=== PATIENT | male | born 1950 | race Caucasian/White ===

== ENCOUNTER 2023-05-08 05:27 | Emergency (ER) | payer MEDICARE, SELFPAY ==
[2023-05-08 05:28] VITALS: BP 158/70; PULSE 52; RESP 20; TEMP 36.1; O2SAT 98; BMI 28.3
--- NOTE | 2023-05-08 05:44 | EDS_ITS ---
HPI History of Present Illness Chief Complaint: Dental Informant: patient Narrative Narrative: Patient states over the last couple days he has been having a painful swelling in the gum at the base of his mandibular incisors. No bleeding or discharge. No fevers, chills, systemic symptoms. No injury. He knows he has a history of bad teeth, trying to get to see a dentist but no one available in short timeframe. Also states that his left shoulder has been an issue chronically as well as a trapezius strain, some occasional tremors, and some neck discomfort, all of which she has been seeing a chiropractor for but his shoulder has been a little more sore in the last for 5 days, nothing that limits his range of motion though. [facility] Medical History Anxiety Bipolar 1 disorder Gout Home Medications amoxicillin 500 mg tablet 500 mg PO TID #30 tabs 05/08/23 [Rx Last Taken Unknown] buspirone 15 mg tablet 15 mg PO TID 05/08/23 [History Last Taken Unknown] carbamazepine 100 mg tablet,extended release,12 hr (Tegretol XR) 100 mg PO DAILY 05/08/23 [History Last Taken Unknown] Allergy/AdvReac Type Severity Reaction Status Date / Time Penicillins AdvReac Diarrhea Verified 05/08/23 05:28 Social History Smoking Status: Never smoker ROS ROS ED Constitutional Constitutional ED: Denies chills or fever(s) Eyes Eyes: Denies change in vision or double vision ENT ENT ED: Reports dental pain; Denies sinus pain or throat swelling Cardiovascular Cardiovascular: Denies chest pain or palpitations Respiratory/Chest Respiratory/Chest: Denies cough or dyspnea Integumentary Denies abscess or rash Neurologic Neurologic: Denies headache(s), paresthesias or weakness Psychiatric Psychiatric: Denies auditory hallucinations or suicidal ideation EXAM Physical Exam Const Vital Signs: 05/08/23 05:28 Temperature 97.0 F L Temperature Source Temporal Pulse Rate 52 L Respiratory Rate 20 H Blood Pressure 158/70 H Blood Pressure Mean 99 Pulse Ox 98 Oxygen Delivery Method Room Air Positive well nourished and well developed General Appearance ED: well developed and NAD HEENT HEENT Narrative: Poor dentition throughout. Anteriorly at the base of mandibular incisors, there is a small tender hyperemic swelling of the gingiva without a focal abscess, flu ctuance, sublingual edema, or submental fullness externally. No trismus. Nothing fluctuant to drain. Face and Sinus: sinuses nontender Throat: posterior oropharynx normal Eyes PERRL and EOMs intact bilaterally Neck no lymphadenopathy and supple Resp normal respiratory effort Extremity normal to inspection Extremity Narrative: Able to move fully both shoulders, somewhat limited at extremes with regards to the left shoulder, no focal bony or subacromial tenderness, no acromioclavicular joint tenderness or swelling. Neuro oriented x3 and CN's II-XII intact bilaterally Sensorium / Orientation: alert Gait (Neuro): normal gait Psych Psych Narrative: Flight of ideas. Redirectable. Does not seem acutely manic. Skin no rashes or lesions noted and no wounds MDM MDM MDM Narrative Medical decision making narrative: Consistent with an early dental infection, multifocal poor dentition is an obvious potential etiology. He states he thought he had an infection to penicillin because of taking tetracycline in the past that gave him problems and he thought it was a derivative. We discussed that. He states he can tolerate amoxicillin without any difficulty and is okay being on that. Discharge Plan Triage Chief Complaint: Dental ED Provider: Jeramie Mendez Dx/Rx/DC Orders Clinical Impression: Infected dental caries Instructions: ED Tooth Abscess Prescriptions: New amoxicillin 500 mg tablet 500 mg PO TID Qty: 30 0RF No Action buspirone 15 mg tablet 15 mg PO TID carbamazepine [Tegretol XR] 100 mg tablet extended release 12 hr 100 mg PO DAILY Primary Care Provider: Care Physician,No Primary Referrals: Dentist,Your [STAFF PHYSICIAN] - As soon as possible (see attached resource list as needed) Activity Restrictions/Additional Instructions: While on antibiotic, eat yogurt daily or take probiotic capsules as directed on the bottle to help prevent antibiotic associated diarrhea. Disposition Disposition: Home, Self Care
[2023-05-08] MEDS: AMOXICILLIN 500 MG CAPSULE PO (05:57)
== END 2023-05-08 06:20 | disposition home or self-care (01) ==
LOC: ED 05:51
PROVIDERS: Emergency Provider Emergency Medicine; Visit Provider Emergency Medicine
DX: K02.9 Dental caries, unspecified (principal); R25.1 Tremor, unspecified; S46.812A Strain of other muscles, fascia and tendons at shoulder and upper arm level, left arm, initial encounter; Z79.899 Other long term (current) drug therapy; X58.XXXA Exposure to other specified factors, initial encounter
CPT/HCPCS: 99282

== ENCOUNTER 2023-07-27 16:29 | Emergency (ER) | payer MEDICARE, SELFPAY ==
[2023-07-27 16:30] VITALS: BP 164/87; PULSE 52; RESP 20; TEMP 35.8; O2SAT 100; BMI 28.7
--- NOTE | 2023-07-27 16:46 | EDS_ITS ---
HPI History of Present Illness Chief Complaint: Dental Narrative Narrative: 72-year-old male who denies significant past medical history presents with dental pain that he has been having over the last 2 to 3 days, intermittently. Pain is mainly in his mandibular teeth, towards the front but in the area of the central incisors. Has had problems in the past, last having amoxicillin prescribed for him in April of last year, few months ago. He was unable to follow-up with a dentist. Is also concerned about a bump on the back of his neck that he noticed a few days ago as well. He denies any fevers or chills, no nausea or vomiting. States he has an appointment with his primary care physician, but has not for a month. He states he went to an urgent care where they were rude to him, so he left there, and presents to the emergency department for amoxicillin prescription for his dental pain. [facility] Medical History Anxiety Bipolar 1 disorder Gout Home Medications amoxicillin 500 mg tablet 500 mg PO TID #30 tabs 05/08/23 [Rx Last Taken Unknown] buspirone 15 mg tablet 15 mg PO TID 05/08/23 [History Last Taken Unknown] carbamazepine 100 mg tablet,extended release,12 hr (Tegretol XR) 100 mg PO DAILY 05/08/23 [History Last Taken Unknown] amoxicillin 500 mg capsule 500 mg PO TID #30 caps 07/27/23 [Rx Last Taken Unknown] Allergy/AdvReac Type Severity Reaction Status Date / Time Penicillins AdvReac Diarrhea Verified 07/27/23 16:30 Social History Smoking Status: Never smoker ROS ROS ED ROS Narrative Constitutional: No fever, no chills. HEENT: No sore throat. No neck pain. No loss of vision. No rhinorrhea. Bump on back of neck, right side. Positive dental pain intermittently over the last 2 to 3 days an area of central incisors. Cardiovascular: No chest pain. No palpitations. No pedal edema. Respiratory: No cough, no shortness of breath. Abdominal: No abdominal pain. No nausea. No vomiting. Genitourinary: No dysuria. No hematuria. Musculoskeletal: No myalgias. No arthralgias. Neurologic: No headaches. No dizziness. No lightheadedness. Skin: No rash. No change in color. Psychiatric: No depression. No anxiety. EXAM Physical Exam Narrative Exam Narrative: Afebrile. Vital signs noted. HEENT: Normocephalic. Atraumatic. PERRL, EOMI. Neck soft and supple. No point tenderness or step off. Slightly enlarged posterior cervical lymph node, no erythema, not attached, discretely mobile. Poor dentition with dental caries eroded to gumline tooth #25 and surrounding, no wounds of the gum, no drooling or trismus, no Prosper angina. Cardiovascular: Regular rate and rhythm. No murmurs, rubs, or gallops appreciated. Respiratory: No tachypnea. Lungs clear to auscultation bilaterally. Gastrointestinal: Abdomen soft, nontender, with normoactive bowel sounds. No rebound or guarding. Neurological: Awake. Alert. Nonfocal, nonlateralizing. Skin: No rash. Normal color. No pallor. Musculoskeletal: No pedal edema. Full range of motion extremities. Const Vital Signs: 07/27/23 16:30 Temperature 96.5 F L Temperature Source Temporal Pulse Rate 52 L Respiratory Rate 20 H Blood Pressure 164/87 H Blood Pressure Mean 112 Pulse Ox 100 Oxygen Delivery Method Room Air MDM MDM MDM Narrative Medical decision making narrative: Do not feel that any laboratory work is indicated. I think that his enlarged lymph node is nonspecific. I reviewed his prior ED visit and he did receive amoxicillin for his dental pain with suspected abscess. Given his dental caries and erosion, he may have a periapical abscess. He will be given a dental resource sheet and prescribed amoxicillin. Regarding his slightly enlarged lymph node, he will get this checked by his primary care physician with his appointment. Additionally, he was told that the amoxicillin may help with this slight enlargement. I feel he can be discharged safely home with follow-up. Return instructions to the emergency department were reviewed. Disposition is discharged home in stable condition. History & Record Review Discussion w/independent historian: Patient Additional record(s) reviewed:: Prior ED visit Discharge Plan Triage Chief Complaint: Dental ED Provider: Emiliano Bhatti Dx/Rx/DC Orders Clinical Impression: Lymph node enlargement, Dental abscess Instructions: Lymphadenopathy, ED Dental Pain, ED Dental Abscess Prescriptions: New amoxicillin 500 mg capsule 500 mg PO TID Qty: 30 0RF No Action buspirone 15 mg tablet 15 mg PO TID carbamazepine [Tegretol XR] 100 mg tablet extended release 12 hr 100 mg PO DAILY amoxicillin 500 mg tablet 500 mg PO TID Qty: 30 0RF Primary Care Provider: Care Physician,No Primary Referrals: Care Physician,No Primary [Primary Care Provider] - Activity Restrictions/Additional Instructions: Follow-up with your primary care provider as scheduled. Follow-up with a dentist as soon as possible. Disposition Disposition: Home, Self Care [employer] Reflex Medical hold order details:: IF a medical hold is selected below, a suggested order for a MEDICAL HOLD will reflex upon signing the document. Next of kin: [place] law dictates a PRIORITY LIST for identifying legal decision-maker/legal next of kin in the following order (LNOK): 1st: The patient?s legal guardian, if any 2nd: The patient's spouse (if status is questionable, consult Risk Management) 3rd: The patient?s adult child(aysha) (majority, if multiple children) 4th: The patient?s parents 5th: The patient?s adult siblings (majority, if multiple children siblings)
--- OUTSIDE RECORDS SUMMARY | 2023-07-27 17:58 | XMS RPT_ITS | CCD ---
Author Name Unknown Address [address] [facility] [address] [place] [address] Organization [facility] Care Team Providers Care [employer] Member Name Role Phone LAYA, DELL Primary Care Unavailable KOFI CORTES Attending Unavailable WILBERTO DILLON Admitting Unavailabl e WILBERTO DILLON Attending Unavailabl e AA UNKNOWN PCP, UNKNOWN Primary Care Unavaila WILBERTO Garcia Attending Unavailabl e AA UNKNOWN PCP, UNKNOWN Primary Care Unavaila ble WILBERTO DILLON Admitting Unavailabl e Laya, Dell Primary Care Provider Laya JESUS, Dell Primary Care Provider Laya JESUS, Dell Primary Care Provider [phone] Laya JESUS, Dell Primary Care Provider [phone] Laya JESUS, Dell Primary Care Provider Laya, Dell Unavailable Sanjuana Lambert LAYA, DELL Primary Care Unavailable RICK BIANCHI Admitting Unavailable KRYS JENKINS Attending Unavailable MARY WOLF Consulting Unavailable Laya, Dell Unavailable Laya JESUS, Dell Primary Care Provider [phone] Dr. SANJUANA LAMBERT Attending Unavaila ble Laya, Dell Primary Care Unavailable AZEM, Dr. ENRIQUE JALLOH Attending Unavail able Laya, Dell Primary Care Unavailable AZEM, Dr. ENRIQUE JALLOH Attending Unavail able Laya, Dell Primary Care Unavailable AZEM, Dr. ENRIQUE JALLOH Attending Unavail able Laya, Dell Primary Care Unavailable AZEM, Dr. ENRIQUE JALLOH Attending Unavail able Laya, Dell Primary Care Unavailable AZEM, Dr. ENRIQUE JALLOH Attending Unavail able Laya, Dell Primary Care Unavailable AZEM, Dr. ENRIQUE JALLOH Attending Unavail able Laya, Dell Primary Care Unavailable AZEM, Dr. ENRIQUE JALLOH Attending Unavail able Laya, Dell Primary Care Unavailable AZEM, Dr. ENRIQUE JALLOH Attending Unavail able Laya, Dell Primary Care Unavailable Allergies Allergy Classification Reported Allergen(s) Allergy Type Date of Onset Reaction(s) Facility (1 source) Penicillin Drug Allergy [facility] Repository (8 sources) Non-steroidal anti-inflammato ry agent; Translations: [NSAIDS (NON-STEROIDAL ANTI-INFLAMMATO RY DRUG)] Propensity to adverse reactions to drug 5 Other: See Comments [facility] (9 sources) Penicillins; Translations: [PENICILLINS] Propensity to adverse reactions 7 Unknown [facility] (20 sources) Non-steroidal anti-inflammato ry agent Propensity to adverse reactions to drug 5 Other: See Comments [facility] (20 sources) Penicillins Propensity to adverse reactions 7 [facility] Medications Current Medications Medication Drug Class(es) Dates Sig (Normalized) Sig (Original) acetaminophen 500 mg oral tablet (20 sources) Start: 05-23-2019 acetaminophen (TYLENOL) tablet 1,000 mg Completed/Discontinued Medications Medication Drug Class(es) Dates Sig (Normalized) Sig (Original) allopurinol 100 mg oral tablet (20 sources) Xanthine Oxidase Inhibitor Start: 12-31-2020 End: 03-11-2022 take 2 tablets by mouth once daily allopurinol (ZYLOPRIM) 100 mg tablet Indications: Idiopathic chronic gout without tophus, unspecified site Take 2 tablets by mouth once daily. 180 tablet 3 03/11/2022 Active Problems Active Problems Problem Classification Problem Date Documented Date Episodic/Chronic Acquired foot deformities (2 sources) Hammer toe; Translations: [Other hammer toe(s) (acquired), left foot] Chronic Allergic reactions (2 sources) Allergy status to penicillin; Translations: [ALLERGY STATUS TO PENICILLIN] Onset: 06-10-2020 Episodic Anxiety disorders (20 sources) Anxiety; Translations: [Anxiety disorder, unspecified] 09-16-2014 Chronic Chronic kidney disease (20 sources) Chronic kidney disease stage 3; Translations: [Stage 3 chronic kidney disease] 07-07-2021 Chronic Chronic kidney disease (1 source) Chronic kidney disease; Translations: [Stage 3a chronic kidney disease (HCC)] Onset: 07-08-2021 Deficiency and other anemia (16 sources) Pancytopenia; Translations: [Other pancytopenia] Onset: 03-11-2022 Chronic Diseases of mouth; excluding dental (1 source) Other lesions of oral mucosa; Translations: [Other lesions of oral mucosa] Onset: 05-28-2022 Episodic Disorders of teeth and jaw (7 sources) Dental caries, unspecified; Translations: [Infection of tooth] Onset: 06-10-2020 05-28-2022 Episodic Esophageal disorders (20 sources) Gastroesophageal reflux disease; Translations: [Gastro-esophageal reflux disease without esophagitis] 09-16-2014 Chronic Essential hypertension (20 sources) Benign essential hypertension; Translations: [Essential (primary) hypertension] 12-16-2015 Chronic Gout and other crystal arthropathies (20 sources) Gout; Translations: [Gout, unspecified] 09-16-2014 Chronic Hyperplasia of prostate (1 source) Weak urinary stream due to benign prostatic hypertrophy; Translations: [Benign prostatic hyperplasia with lower urinary tract symptoms] Chronic Hypertension with complications and secondary hypertension (20 sources) Chronic kidney disease stage 3 due to hypertension; Translations: [Hypertensive chronic kidney disease with stage 1 through stage 4 chronic kidney disease, or unspecified chronic kidney disease] Onset: 01-31-2021 01-31-2021 Chronic Mood disorders (20 sources) Bipolar disorder, unspecified; Translations: [Bipolar disorder in remission] Onset: 09-11-2019 07-07-2021 Chronic Open wounds of head; neck; and trunk (1 source) Laceration without foreign body of other part of head, initial encounter; Translations: [Facial laceration, initial encounter] Onset: 06-07-2022 Episodic Osteoarthritis (20 sources) Osteoarthritis of joint of bilateral hands; Translations: [Primary osteoarthritis, right hand] Onset: 02-04-2021 02-04-2021 Chronic Other aftercare (4 sources) Patient encounter status; Translations: [Encounter for therapeutic drug level monitoring] Episodic Other connective tissue disease (1 source) Pain in left foot; Translations: [Pain in left foot] Onset: 05-28-2022 Episodic Other connective tissue disease (1 source) Pain in both feet; Translations: [Pain in right foot] Episodic Other male genital disorders (1 source) Secondary erectile dysfunction; Translations: [Male erectile dysfunction, unspecified] Chronic Other nutritional; endocrine; and metabolic disorders (1 source) Overweight; Translations: [Overweight] Episodic Peripheral and visceral atherosclerosis (7 sources) Atherosclerosis of artery of lower limb; Translations: [Unspecified atherosclerosis of muscogee arteries of extremities, bilateral legs] Onset: 08-28-2022 Chronic Spondylosis; intervertebral disc disorders; other back problems (20 sources) Cervical arthritis; Translations: [Spondylosis without myelopathy or radiculopathy, cervical region] Onset: 11-29-2017 11-29-2017 Chronic Syncope (1 source) Syncope and collapse; Translations: [Syncope, unspecified syncope type] Onset: 06-07-2022 Episodic Unclassified (2 sources) LT FOOT PAIN / TOOTH ABSCESS 05-28-2022 Past or Other Problems Problem Classification Problem Date Documented Da te Episodic/Chronic Abdominal hernia (20 sources) Umbilical hernia; Translations: [Umbilical hernia without obstruction or gangrene] Onset: 12-17-2014 12-17-2014 Episodic Fracture of lower limb (12 sources) Displaced Maisonneuve's fracture of right leg, initial encounter for closed fracture; Translations: [Displaced bimalleolar fracture of right lower leg, initial encounter for closed fracture] Onset: 06-07-2022 06-07-2022 Episodic Lymphadenitis (20 sources) Lymphadenopathy; Translations: [Enlarged lymph nodes, unspecified] Onset: 05-11-2017 05-11-2017 Episodic Mycoses (20 sources) Onychomycosis; Translations: [Tinea unguium] Onset: 12-30-2016 12-30-2016 Episodic Other connective tissue disease (20 sources) Pain of toes of bilateral feet; Translations: [Pain in right toe(s)] Onset: 12-30-2016 12-30-2016 Episodic Other hematologic conditions (20 sources) MCV - raised; Translations: [Other abnormality of red blood cells] Onset: 05-21-2020 05-21-2020 Episodic Other lower respiratory disease (2 sources) Cough; Translations: [COUGH] Onset: 09-11-2019 Episodic Other non-traumatic joint disorders (1 source) Osteophyte, right shoulder; Translations: [Osteophyte of right shoulder] Episodic Other skin disorders (20 sources) Callosity; Translations: [Corns and callosities] Onset: 12-30-2016 12-30-2016 Episodic Residual codes; unclassified (1 source) Peripheral edema; Translations: [Peripheral edema] Episodic Results Test Name Value Interpretation Reference Range Facil ity Vital Signs Date Time Vital Sign Value Performing Clinician Facility 10-05-2022 14:16-0400 Body height 175.3 cm Sakina Rodriguez DPM Work Phone: [facility] 10-05-2022 14:16-0400 Body temperature 97.3 [degF] Sakina Rodriguez DPM Work Phone: [facility] 10-05-2022 14:16-0400 Body weight 85.73 kg Sakina Rodriguez DPM Work Phone: [facility] 07-01-2022 13:57-0500 Body temperature 97.3 [degF] Sakina Rodriguez DPM Work Phone: [facility] 07-01-2022 13:57-0500 Body weight 85.73 kg Sakina Rodriguez DPM Work Phone: [facility] 05-28-2022 04:30-0500 Diastolic blood pressure 61 mm[Hg] Dell Reeves Other Phone: [facility] 05-28-2022 04:30-0500 Heart rate 59 /min Dell Reeves Other Phone: [facility] 05-28-2022 04:30-0500 Respiratory rate 16 /min Dell Reeves Other Phone: [facility] 05-28-2022 04:30-0500 SaO2% (BldA) [Mass fraction] 98 % Dell Reeves Other Phone: [facility] 05-28-2022 04:30-0500 Systolic blood pressure 116 mm[Hg] Dell Reeves Other Phone: [facility] 05-28-2022 03:41-0500 Body height 175.2 cm Delljesse Reeves Other Phone: formerly [facility] 05-28-2022 03:41-0500 Body temperature 96.98 [degF] Dell Laya Other Phone: formerly [facility] 05-28-2022 03:41-0500 Body weight 84.4 kg Delljesse Reeves Other Phone: formerly [facility] 04-28-2022 10:05-0400 Body height 175.3 cm Sakina Rodriguez DPM Work Phone: [facility] 04-28-2022 10:05-0400 Body temperature 97.11 [degF] Sakina Rodriguez DPM Work Phone: [facility] 04-28-2022 10:05-0400 Body weight 86.18 kg Sakina Rodriguez DPM Work Phone: [facility] 03-11-2022 15:00-0400 Body temperature 97.9 [degF] Saul Bhagat MD Work Phone: [facility] 03-11-2022 15:00-0400 Body weight 86.18 kg Saul Bhagat MD Work Phone: [facility] 03-11-2022 15:00-0400 Diastolic blood pressure 68 mm[Hg] Saul Bhagat MD Work Phone: [facility] 03-11-2022 15:00-0400 Heart rate 80 /min Saul Bhagat MD Work Phone: [facility] 03-11-2022 15:00-0400 Respiratory rate 18 /min Saul Bhagat MD Work Phone: [facility] 03-11-2022 15:00-0400 SaO2% (BldA) [Mass fraction] 98 % Saul Bhagat MD Work Phone: [facility] 03-11-2022 15:00-0400 Systolic blood pressure 140 mm[Hg] Saul Bhagat MD Work Phone: [facility] 05-23-2019 22:45-0500 BP Diastolic 74 mm[Hg] Kofi Cortes [place], [place] 05-23-2019 22:45-0500 BP Systolic 188 mm[Hg] Kofi Cortes [place] 05-23-2019 22:45-0500 Pulse (Heart Rate) 62 /min Kofi Cortes [place] 05-23-2019 22:45-0500 Pulse Oximetry 97 % Kofi Cortes [place] 05-23-2019 22:45-0500 Respiratory Rate 16 /min Kofi Cortes [place] 05-23-2019 19:45-0500 BMI (Body Mass Index) 26.58 kg/m2 Kofi Jackman [place], [place] 05-23-2019 19:45-0500 Body Temperature 98.29 [degF] Kofi Cortes [place] 05-23-2019 19:45-0500 Body weight 81.65 kg Kofi Cortes [place] 05-23-2019 19:45-0500 Height 175.3 cm Kofi Cortes [place] Encounters Encounter Date Encounter Type Care Provider Facility Start: 04-21-2023 Refill Dell Reeves MD Work Phone: Family [facility] Procedures Date Procedure Procedure Detail Performing Clinician Start: 06-07-2022 Antibody screen DELL FERRER Plan of Treatment Date Care Activity Detail Author Start: 10-17-2028 Urine microalbumin profile [facility] Start: 03-11-2027 Lipid 1996 panel - Serum or Plasma Lipid Screening [facility] Start: 03-11-2027 LIPID SCREEN LIPID SCREEN [facility] Start: 06-11-2025 DIABETES SCREEN DIABETES SCREEN [facility] Start: 06-11-2025 Diabetes Screening Diabetes Screening [facility] Start: 05-20-2025 LIPID SCREEN LIPID SCREEN [facility] Start: 03-11-2025 DIABETES SCREEN DIABETES SCREEN [facility] Start: 04-24-2024 DIABETES SCREEN DIABETES SCREEN [facility] Start: 06-11-2023 SERUM CREATININE SERUM CREATININE [facility] Start: 06-09-2023 HEMOGLOBIN/HEMATOCRIT HEMOGLOBIN/HEMATOCRIT [facility] Start: 03-12-2023 Covid-19 Vaccine () Covid-19 Vaccine () [facility] Start: 03-12-2023 Influenza vaccination [facility] Start: 03-11-2023 Adult depression screening assessment DEPRESSION SCREENING [facility] Start: 03-11-2023 ANNUAL PCP TEAM CHRONIC DISEASE VISIT ANNUAL PCP TEAM CHRONIC DISEASE VISIT [facility] Start: 03-11-2023 HEMOGLOBIN/HEMATOCRIT HEMOGLOBIN/HEMATOCRIT [facility] Start: 03-11-2023 SERUM CREATININE SERUM CREATININE [facility] Start: 07-12-2022 ADVANCE DIRECTIVE DISCUSSION ADVANCE DIRECTIVE DISCUSSION [facility] Start: 07-12-2022 DEPRESSION ASSESSMENT DEPRESSION ASSESSMENT [facility] Start: 07-08-2022 NPV, Provider: Arturo French, Status: Pen, Time: 9:30 AM NPV, Provider: Arturo French, Status: Victor M, Time: 9:30 AM [facility] Work Phone: Start: 04-24-2022 HEMOGLOBIN/HEMATOCRIT HEMOGLOBIN/HEMATOCRIT [facility] Start: 04-24-2022 SERUM CREATININE SERUM CREATININE [facility] Start: 03-12-2022 Influenza vaccination [facility] Start: 02-04-2022 ANNUAL PCP TEAM CHRONIC DISEASE VISIT ANNUAL PCP TEAM CHRONIC DISEASE VISIT [facility] Start: 02-01-2022 Adult depression screening assessment DEPRESSION SCREENING [facility] Start: 12-05-2021 COVID-19 VACCINE (4 - Booster for Moderna series) COVID-19 VACCINE (4 - Booster for Moderna series) [facility] Start: 10-02-2021 COVID-19 VACCINE (4 - Booster for Moderna series) COVID-19 VACCINE (4 - Booster for Moderna series) [facility] Start: 07-12-2021 ADVANCE DIRECTIVE DISCUSSION ADVANCE DIRECTIVE DISCUSSION [facility] Start: 07-12-2021 DEPRESSION ASSESSMENT DEPRESSION ASSESSMENT [facility] Start: 04-27-2021 COVID-19 VACCINE (4 - Booster for Moderna series) COVID-19 VACCINE (4 - Booster for Moderna series) [facility] Start: 05-23-2019 Annual Wellness Visit (AWV) Annual Wellness Visit (AWV) [place] Start: 03-12-2019 Influenza vaccination Flu vaccine (#1) [place], [place] Start: 2017 Pneumococcal 65+ years Vaccine (1 of 1 - PPSV23) Pneumococcal 65+ years Vaccine (1 of 1 - PPSV23) [place] Start: 04-15-2017 Colonoscopy COLONOSCOPY [facility] Start: 04-15-2017 COLORECTAL CANCER SCREENING COLORECTAL CANCER SCREENING [facility] Start: 2002 Colon cancer screen colonoscopy Colon cancer screen colonoscopy [place], [place] Start: 2002 Shingles Vaccine (1 of 2) Shingles Vaccine (1 of 2) [place] Start: 1997 COLOGUARD (FIT-DNA) COLOGUARD (FIT-DNA) [facility] Start: [address] COLONOGRAPHY [facility] Start: 1997 FECAL OCCULT BLOOD FECAL OCCULT BLOOD [facility] Start: 1997 SIGMOIDOSCOPY SIGMOIDOSCOPY [facility] Start: 1992 Diabetes screen Diabetes screen [place], [place] Start: 1992 Lipid screen Lipid screen [place] Start: 1970 BP CONTROLLED (<130/80) BP CONTROLLED (<130/80) [facility] in Start: 1963 DTaP/Tdap/Td vaccine (1 - Tdap) DTaP/Tdap/Td vaccine (1 - Tdap) [place], [place] Start: 1952 Creatinine monitoring Creatinine monitoring [place], [place] Start: 1952 Hepatitis C screen Hepatitis C screen [place], [place] Start: 1952 Potassium monitoring Potassium monitoring [place], [place] CBC W Auto Different ial panel - Blood CBC + DIFF Lab Routine Pancytopenia (HCC) Ordered: 03/11/2022 [facility] Work Phone: Immunizations Immunization Date Immunization Notes Care Provider Fa cili 12-26-2020 COVID-19 vaccine, fu ll dose (MODERNA) Saul Bhagat MD Work Phone: [facility] Work Phone: 12-10-2020 COVID-19 vaccine, fu ll dose (MODERNA) Dell Reeves MD Work Phone: [facility] 11-09-2020 COVID-19 vaccine, fu ll dose (MODERNA) Dell Reeves MD Work Phone: [facility] 11-04-2020 COVID-19 vaccine, fu ll dose (MODERNA) Saul Bhagat MD Work Phone: [facility] Work Phone: 03-27-2020 influenza virus vacc ine, unspecified formulation Dell Reeves MD Work Phone: [facility] Work Phone: 03-26-2020 influenza, injectabl e, quadrivalent, preservative free Saul Bhagat MD Work Phone: [facility] Work Phone: 05-26-2019 Seasonal trivalent influenza vaccine, adjuvanted, preservative free Dell Reeves MD Work Phone: [facility] 11-28-2018 pneumococcal polysaccharide vaccine, 23 valent Dell Reeves MD Work Phone: [facility] 10-17-2018 tetanus toxoid, redu juanito diphtheria toxoid, and acellular pertussis vaccine, adsorbed Dell Reeves MD Work Phone: [facility] 04-28-2018 zoster vaccine recombinant Dell Reeves MD Work Phone: [facility] Work Phone: 04-22-2018 Seasonal trivalent influenza vaccine, adjuvanted, preservative free Dell Reeves MD Work Phone: [facility] Work Phone: 10-09-2017 pneumococcal conjuga te vaccine, 13 valent Dell Reeves MD Work Phone: [facility] Work Phone: 10-09-2017 zoster vaccine recombinant Dell Reeves MD Work Phone: [facility] Work Phone: 03-12-2017 influenza, seasonal, injectable Dell Reeves MD Work Phone: [facility] 06-02-2016 influenza, seasonal, injectable Dell Reeves MD Work Phone: [facility] 08-05-2015 influenza, injectabl e, quadrivalent, contains preservative Dell Reeves MD Work Phone: [facility] 04-10-2013 influenza, seasonal, injectable Dell Reeves MD Work Phone: [facility] Work Phone: 04-16-2009 influenza virus vacc ine, whole virus Dell Reeves MD Work Phone: [facility] 10-25-2007 tetanus and diphther ia toxoids, adsorbed, preservative free, for adult use (2 Lf of tetanus toxoid and 2 Lf of diphtheria toxoid) Dell Reeves MD Work Phone: [facility] Work Phone: Payers Date Payer Category Payer Medicare MMO MEDICARE MMO MEDADVANTAGE O [id number] 2020-Present [phone] [address] [place] [address] [facility] [id number] 2020 Medicare MMO MEDICARE MMO MEDADVANTAGE O [id number] 2020-Present [phone] [address] [place] [address] [facility] [id number] 2020 Unknown [id number] 2018 Unknown [id number] 2018 Unknown HALLIE RAMÍREZ D [facility] [employer] HALLIE RAMÍREZ DUAL xxxxxxxxxxx 2018-Present [address] [place] [address] xxxxxxxxxxx [id number] 2015 Medicare [id number] 1950 Unknown [id number] 1952 Unknown [id number] 1952 Unknown [id number] 1952 Unknown [id number] 1952 Unknown [id number] 1952 Unknown [id number] 1952 Unknown [id number] 1952 Unknown [id number] 1952 Unknown [id number] 1952 Unknown [id number] 1952 Unknown [id number] 1952 Unknown [id number] Medicaid [id number] Self-pay [id number] Unknown Unknown 800 Social History Date Type Detail [facility] [employer] Sex Assigned At Not on file [place], [place] Start: 09-16-2014 End: 03-11-2022 Tobacco smoking status NHIS Never smoked tobacco [facility] Start: 02-04-2021 End: 11-18-2022 Alcohol intake Current non-drinker of alcohol (finding) [facility] Start: 02-02-2021 End: 03-11-2022 History SDOH Alcohol Frequency 1 [facility] Start: 02-02-2021 History SDOH Alcohol Std Drinks 98 [facility] Start: 02-02-2021 End: 03-11-2022 History SDOH Social Connections Phone 5 [facility] Start: 02-02-2021 End: 03-11-2022 History SDOH Social Connections Membership 2 [facility] Start: 02-02-2021 End: 03-11-2022 History SDOH Physical Activity DPW 3 [facility] Start: 02-01-2021 Education 17 [facility] Start: 1950 Sex Assigned At Male [facility] Start: 09-16-2014 End: 03-11-2022 Tobacco use and exposure Smokeless tobacco non-user [facility] Work Phone: Start: 03-11-2022 History SDOH Alcohol Std Drinks 0 [facility] Start: 03-11-2022 History SDOH Social Connections Get Together 4 [facility] Tobacco smoking consumption unknown [facility] Start: 05-29-2022 End: 06-08-2022 Exposure to SARS-CoV-2 (event) Not sure [facility] Start: 03-11-2022 End: 07-26-2022 History of Social function [facility] Start: 03-11-2022 End: 07-26-2022 Social connection and isolation panel [facility] Do you belong to any clubs or organizations such as catholic groups, unions, fraternal or athletic groups, or school groups? No [facility] Are you now , , , , never or living with a partner? [facility] How often to you hav e a drink containing alcohol? Never [facility] How many standard dr inks containing alcohol do you have on a typical day? Patient does not drink [facility] How hard is it for y ou to pay for the very basics like food, housing, medical care, and heating Hard [facility] Do you feel stress - tense, restless, nervous, or anxious, or unable to sleep at night because your mind is troubled all the time - these days [OSQ] Only a little [facility] (I/We) worried carolee er (my/our) food would run out before (I/we) got money to buy more. Often true [facility] The food that (I/we) bought just didn't last, and (I/we) didn't have money to get more. Sometimes true [facility] In the past 12 month s, was there a time when you were not able to pay the mortgage or rent on time? Yes [facility] Start: 10-14-2018 Gender identity Identifies as male gender (finding) [facility] Start: 10-14-2018 Sexual orientation Heterosexual (finding) [facility] Clinical Notes 12-17-2014 to 01-11-2023 Telephone Encounter - Destinee Gould APRN.CNP - 01/11/2023 12:54 PM EDTTelephone Encounter - Lana Cartagena - 01/11/2023 11:36 AM EDTTelephone Encounter - Lana Cartagena - 10/14/2022 12:10 PM EDT Note Date & Type Note Facility 01-11-2023 Miscellaneous Notes Formattin g of this note might be different from the original. Medication refill order completed at this time. Thanks, Destinee Gould APRN.CNP Office of Dr. Dell Reeves [facility] Spoke with patient who states he ran out of buspar yesterday. Has been unable to reach psychiatrist to determine refill status. Asking for a temporary supply to hold him. Dr. Reeves agrees to send in 1 refill only. Rx pended, pharmacy verified No need for call back Lana Cartagena documented in this encounter [facility] 10-14-2022 Miscellaneous Notes Formattin g of this note might be different from the original. Situation: Covid exposure Background: spoke with patient. States he was exposed to someone with Covid while he was in a car several days ago. States he is asymptomatic and fully vaccinated. Assessment: Could he have Covid? Should he be tested? Recommendation/request: Advised patient to monitor for symptoms and test if he becomes symptomatic. We would be happy to see him for a virtual visit if he would like. I am not able to give him any further advice. Lana Cartagena Pt notified front office yesterday that his sister has Covid and he had questions regarding his exposure. Pt is asymptomatic and stated he's out of town. Left another message to call office in attempts to answer patient's questions. I called patient, no answer. Not identified. Left message to call office. Aurora Jones RN Name: Gorge Sanchez called today. : 1950 (home) [phone] (cell) Reason for call: Clyde would like Analy :) to please call him new # [phone] Covid question. Patient did not say he had it. Linda Laureano documented in this encounter [facility] 10-05-2022 Instructions Sakina Rodriguez DPM - 10/05/2022 2:56 PM EDT Patient instructions given. documented in this encounter [facility] 10-05-2022 History of Presen t illness Narrative SUBJECTIVE: Gorge Sanchez presents to the office for complaint of painful fungal toenails and painful foot lesions on left 3rd toe. Patient states that sometimes he tapes the toes apart but the spacer given last visit caused more pain. Denies changes in medication history since last visit, has not been seen since 12/2020. No new allergies and no new medications. Ambulatory with walker and left CAM boot. Patient has had both doses of COVID-19 vaccination. Objective: Temp 36.3 C (97.3 F) Ht 175.3 cm (5' 9 ) Wt 85.7 kg (189 lb) BMI 27.91 kg/m DP pulses palpable +2/4 bilaterally. Nails left 1,2,4,5 and right 1-5 are elongated, thickened, and dystrophic. Right heel hyperkeratosis. Left 3rd digit deformity and hammer toe with maceration and slight ulceration noted without erythema or edema. Pes cavus foot type. Assessment: (M20.42) Hammer toe of left foot (primary encounter diagnosis) (B35.1) Onychomycosis (I70.203)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 different from the original. Called and spoke to patient directly. Patient complains of chronic urinary frequency. He notes he does strain a little in the morning, but he does not endorse significant sensation of incomplete voiding. Rather, he simply states he just cannot hold urine like he used to. He would like something prescribed for this. Will reach out to patient tomorrow regarding medication options. Patient has been identified by name and date of : Yes Reason for call: Patient returned Dr. Bhagat's call. Patient stated he had questions about frequent urination and it is irritating to him. Patient stated he has seen commercials for medication to help but wanted to speak with Dr. Bhagat in regards to something that can help. Please call patient back. restaurant crew person: Patient Phone number: [phone] (home) Name: Gorge Sanchez called today. : 1950 (home) [phone] (cell) Reason for call: Pt called to discuss his appt on 03-11-22. Pt also has questions about his medications. Pt can be reached at [phone] (home) The patients preferred pharmacy has been captured for this encounter? no Heike Check Paca documented in this encounter [facility] 03-12-2022 Miscellaneous Notes Formattin g of this note might be different from the original. Cannot complete prior auth. Patients address and phone number do not match with insurance company. Ins. Company are requiring patient to call and update info prior to allowing office to process PA. Pt notified VIA my chart. Aurora Jones RN ' Patient has been identified by name and date of : Yes Type of form: Prior Authorization Form received via: Fax When form is completed, fax form to fax number provided. Form has been forwarded to: Provider's mailbox. Provider name: Dr. Laya Fang Patient Vehicle Service Attendant documented in this encounter [facility] 03-11-2022 Nurse Note Venipuncture performed to left antecubital. Number of tubes collected: 2 lavender and 2 mint. documented in this encounter [facility] 03-11-2022 History of Presen t illness Narrative Office Visit Note Assessment & Plan 1. Benign prostatic hyperplasia with weak urinary stream Complains of mild LUTS-like symptoms suspicious for BPH. Check prostate labs. May consider trial of tamsulosin in the future. - PSA/PROSTSPECAG SCRN; Future 2. Overweight BMI 28. Check CHEM panel, A1c, lipids. - COMP METABOLIC PANEL - HGB A1C - LIPID PANEL, NONFASTING 3. Bipolar disorder, current episode mixed, moderate (HCC) Stable, controlled on multiple psychotropic medications (see below), dosages of some of these have been decreased over the years. Will refill each at dose that he is currently taking. Monitor thyroid function given that he is on Seroquel. He does not follow with psychiatry. - carBAMazepine (TEGRETOL) 200 mg tablet; Take 3 in AM and 2.5 in PM. Dispense: 495 tablet; Refill: 3 - ARIPiprazole (ABILIFY) 5 mg tablet; Take 1 tablet by mouth once daily. Dispense: 90 tablet; Refill: 3 - busPIRone (BUSPAR) 15 mg tablet; Take 1 tablet by mouth three times daily. Dispense: 270 tablet; Refill: 3 - QUEtiapine (SEROQUEL) 25 mg tablet; Take 1 tablet by mouth daily at bedtime. Dispense: 90 tablet; Refill: 3 - TSH BLD - T4 FREE/FREE THYROX 4. Idiopathic chronic gout without tophus, unspecified site Stable, in remission for years due to allopurinol 200 mg daily. Refill. - allopurinol (ZYLOPRIM) 100 mg tablet; Take 2 tablets by mouth once daily. Dispense: 180 tablet; Refill: 3 5. Stage 3b chronic kidney disease (HCC) Stable for years, GFR 30s 40s, due to remote history of long-term lithium use. Monitoring CHEM panel. 6. Essential hypertension, benign 140/68 today. Goal <130/80 considering CKD stage IIIb. Unclear if this is his baseline for not. Prescribed BP cuff, monitor at home. Patient agrees to notify me if he does not statical <130/80. In that case, would consider increasing lisinopril dosage. - Blood Pressure Monitor; 1 Each as directed for 1 day. Dispense: 1 Kit; Refill: 0 - lisinopril (ZESTRIL, PRINIVIL) 10 mg tablet; Take 1 tablet by mouth once daily. Dispense: 90 tablet; Refill: 3 7. Medication monitoring encounter Takes omeprazole 40 mg daily for GERD. Discussed long-term use, trial self wean at home. We will prescribe 20 mg tablets instead of 40 mg tablets. Patient will try to decrease to 20 mg daily x2 months, then to as needed use only. - omeprazole (PRILOSEC) 20 mg capsule; Take 2 capsules by mouth once daily. Dispense: 180 capsule; Refill: 3 8. Pancytopenia (HCC) Mild pancytopenia noted on blood work 1 year ago. No subsequent CBC. Repeat CBC with diff today. If persistent then consider hematology consultation. - CBC + DIFF 9. ED (erectile dysfunction) of organic origin Controlled on Cialis, usually takes 2-3 tablets to achieve adequate response prior to sexual activity. - Tadalafil (CIALIS) 5 mg tablet; Take 1 tablet by mouth as needed. 1-2 hours before sexual intercourse Dispense: 30 tablet; Refill: 3 Return in about 6 months (around 09/08/2022) for Follow-up with PCP for chronic conditions management. Possibly sooner if dictated by labs. Saul Bhagat M.D. Subjective Gorge Sanchez is a 71 year old male with chief complaint of med review . Presents for med refills. Was told he had to make appointment prior to more refills being sent. Not seen in this clinic in >1 year. C/o left shoulder pain s/p fall 3 months ago. No weakness. C/o slower urinary stream recently, has to urinate multiple times in the morning. Denies straining. Denies dysuria, significant nocturia, and hematuria. Mood and anxiety are stable. He is satisfied with his current regimen of psychotropic medications. Medical history reviewed. Health maintenance reviewed. Objective 03/11/22 1500 BP: 140/68 BP Site: Left Arm BP Position: Sitting BP Cuff Size: Regular Adult Pulse: 80 Resp: 18 Temp: 36.6 C (97.9 F) TempSrc: Temporal SpO2: 98% Weight: 86.2 kg (190 lb) Body mass index is 28.06 kg/m . Depression Screening 01/14/2016 05/11/2017 02/01/2021 03/11/2022 PHQ-2 Score 1 2 2 3 PHQ-9 Score - - - 3 Depression screening tool completed and reviewed. Based on score and interview, patient is already diagnosed with depression. Screening tool discussed with patient, and I recommended no further intervention at this time and continuing current plan of care. Physical Exam Vitals and nursing note reviewed. Constitutional: General: He is not in acute distress. Appearance: Normal appearance. He is not ill-appearing. HENT: Head: Normocephalic and atraumatic. Right Ear: Tympanic membrane, ear canal and external ear normal. Left Ear: Tympanic membrane, ear canal and external ear normal. Nose: Nose normal. Mouth/Throat: Mouth: Mucous membranes are moist. Comments: Poor dentition. Has upper denture. Eyes: Conjunctiva/sclera: Conjunctivae normal. Neck: Comments: No thyromegaly or nodule. Cardiovascular: Rate and Rhythm: Normal rate and regular rhythm. Heart sounds: Normal heart sounds. No murmur heard. Pulmonary: Effort: Pulmonary effort is normal. No respiratory distress. Breath sounds: Normal breath sounds. No wheezing, rhonchi or rales. Abdominal: General: Abdomen is flat. There is no distension. Palpations: Abdomen is soft. Tenderness: There is no abdominal tenderness. Musculoskeletal: Cervical back: No tenderness. Right lower leg: No edema. Left lower leg: No edema. Neurological: General: No focal deficit present. Mental Status: He is alert. Psychiatric: Mood and Affect: Mood normal. Behavior: Behavior normal. Thought Content: Thought content normal. Judgment: Judgment normal. documented in this encounter [facility] 02-20-2022 Miscellaneous Notes Formattin g of this note might be different from the original. Noted. Thank you. Patient has been identified by name and date of : Yes Reason for call: Patient called in upset about his buspirone prescription. He stated he is not getting the 270, only 135 and he is upset that the office did something and now can't get the right amount . Pt was not happy and voiced his frustration with the process and protocols. Patient stated he feels that the office wants him fired and that he is struggling financially and the office is trying to force him out. Pt denied to schedule, he is aware he needs to be seen in office. restaurant crew person: Patient Phone number: [phone] (home) documented in this encounter [facility] 02-17-2022 Miscellaneous Notes Formattin g of this note might be different from the original. Noted. Lana Cartagena Patient called back. States he is upset with all the legal requirements for visits and he will pay for the script as written and to tell Dr. Reeves will look for a new doctor. Left message. It has been 13 months since patient has had office visit. Pt MUST see pcp or CHILI MAKER for office visit. Aurora Jones RN Patient called requesting the following refill. Requested Prescriptions Pending Prescriptions Disp Refills QUEtiapine (SEROQUEL) 25 mg tablet 60 tablet 0 Sig: Take 1 tablet by mouth twice daily as needed. omeprazole (PRILOSEC) 40 mg capsule 30 capsule 0 Sig: Take 1 capsule by mouth once daily. PATIENT NEEDS 90 DAY FILL OF THIS PRESCRIPTION AND IS AT THE PHARMACY NOW. Caller's (home) Patient's last office visit was on 02/04/21 Request is for script(s) to be E-script to pharmacy. Patient will need a call back No Nayeli Fang Patient Vehicle Service Attendant documented in this encounter [facility] 02-17-2022 Miscellaneous Notes Formattin g of this note might be different from the original. Please establish an appointment for your annual examination. Chuy Camargo APRN.FAN BLADE ALIGNER Pt request refill of quetiapine and omeprazole. Pt informed Quetiapine has refills. Pt states does not go to that pharmacy anymore and request scripts be sent to [facility] in [place] [address] Order pended. Pharmacy verified. Tiffanie Orellana RN documented in this encounter [facility] 02-02-2022 Miscellaneous Notes Formattin g of this note might be different from the original. Noted. Thank you. Will forward to the provider as SALIMA Cartagena Patient has been identified by name and date of : Yes Reason for call: Patient called in regarding buspar. Pt stated he keeps getting half of his scripts (135 tablets) instead of the 270. Informed pt [facility] has refills with the correct quantity. Pt stated he can't get to that pharmacy because [place]. Pt stated he will call back in about 5 weeks to refill the med but would like it to be the 90 day, 3 refill with 270 tablets per refill. He would like it sent to [facility] in [place] [address], [place] [address] when he calls back to get the refill. No need to contact patient, sending as FYI. restaurant crew person: Patient Phone number: [phone] (home) documented in this encounter [facility] 01-08-2022 Miscellaneous Notes Spoke with patient who is upset that he had to make 2 copays for Buspar and wants to make sure that any future refills will be for 270 pills. No need for call back Lana Cartagena documented in this encounter [facility] 01-01-2022 Miscellaneous Notes Called patient and relayed message he is in [place] and that is the correct pharmacy. He also stated that his Buspar was sent to the pharmacy in [place] and in our system it was sent as 3 times a day 270 tab with one refill but pharmacy said only written for 135 tabs. Mimi sending to local for written amount I will notify patient. Mily Gallegos Ma Yes, patient needs to continue to take this for maintenance. This helps prevent gout attacks from coming. Refills to [facility] in [place]. Please verify this is the correct pharmacy because I thought patient was in [place]. The following approved medication requests have been transmitted electronically: Pending Prescriptions: Disp Refills allopurinol (ZYLOPRIM) 100 mg tablet 180 tablet3 Sig: Take 2 tablets by mouth once daily. STEFANO: No Mimi Benz PA-C 01/01/2022, 8:14 AM Patient called requesting the following refill. Pending Prescriptions Disp Refills ALLOPURINOL 100 MG TABLET 180 tablet 3 Sig: Take 2 tablets by mouth once daily. STEFANO: No Patient would like to know if he needs to continue taking this. Says he hasn't had gout in some time and if not necessary, does not need the refill, just let him know. If needed for maintenance he will continue taking. Caller's (home) Patient's last office visit was on 02/04/21 Request is for script(s) to be E-script to pharmacy. Patient will need a call back No Nayeli Fang Patient Vehicle Service Attendant documented in this encounter [facility] 12-16-2021 Miscellaneous Notes Corrected quantity sent to pharmacy. The following approved medication requests have been transmitted electronically: Signed Prescriptions Disp Refills busPIRone (BUSPAR) 15 mg tablet 270 tablet 1 Sig: Take 1 tablet by mouth three times daily. STEFANO: No Authorizing Provider: CATINA BENZ PA-C 12/16/2021, 3:41 PM Pt states buspirone only prescribed for 45 days and should be 90 days (270 tablets). Pt complaining that it cost him more money the way it was prescribed. Tiffanie Orellana RN documented in this encounter [facility] 12-16-2021 Miscellaneous Notes Patient called back and confirmed the pharmacy script was sent to. Refilled. FYI to Dr. Reeves about patient's move to [place]. The following approved medication requests have been transmitted electronically: Pending Prescriptions: Disp Refills carBAMazepine (TEGRETOL) 200 mg tablet 495 tablet0 Sig: Take 3 in AM and 2.5 in PM. STEFANO: No busPIRone (BUSPAR) 15 mg tablet 135 tablet1 Sig: Take 1 tablet by mouth three times daily. STEFANO: No Mimi Benz PA-C 12/16/2021, 1:36 PM documented in this encounter [facility] 11-27-2021 Miscellaneous Notes Gorge called. Reports urinary urgency and some leakage of urine recently. I recommended in-person evaluation so we can do prostate exam, urinalysis, and labs. Patient amenable to plan. He states he is going to need to call back to schedule this visit. documented in this encounter [facility] 11-21-2021 Miscellaneous Notes The following approved medication requests have been transmitted electronically. Pending Prescriptions: Disp Refills ARIPiprazole (ABILIFY) 5 mg tablet 90 tablet 1 Sig: Take 1 tablet by mouth once daily. STEFANO: No Dell Reeves MD Patient called requesting the following refill. Pending Prescriptions Disp Refills ARIPIPRAZOLE 5 MG TABLET 90 tablet 1 Sig: Take 1 tablet by mouth once daily. STEFANO: No patient would like 90 days if possible. Patient is moving back to the [facility]. Caller's (home) [phone] (cell) Patient's last office visit was on 02/04/21 Request is for script(s) to be E-script to pharmacy. Patient will need a call back No Nayeli Fang Patient Vehicle Service Attendant documented in this encounter [facility] 10-27-2021 Miscellaneous Notes Left message on identified voicemail . I am returning his call [phone] Lana Cartagena documented in this encounter [facility] 10-22-2021 Miscellaneous Notes Pt request refill of lisinopril. Pt informed there should be one more remaining refill and to contact his pharmacy. Pt verbalized understanding. Tiffanie Orellana RN documented in this encounter [facility] documented as of this encounter (statuses as of 10/22/2021) [facility] History of Past illness Narrative* Problem Noted Date Resolved Date Impotence 12/17/2014 06/27/2019 documented as of this encounter (statuses as of 10/27/2021) [facility] of Past illness Narrative* Problem Noted Date Resolved Date Impotence 12/17/2014 06/27/2019 documented as of this encounter (statuses as of 11/21/2021) [facility] History of Past illness Narrative* Problem Noted Date Resolved Date Impotence 12/17/2014 06/27/2019 documented as of this encounter (statuses as of 11/27/2021) [facility] History of Past illness Narrative* Problem Noted Date Resolved Date Impotence 12/17/2014 06/27/2019 documented as of this encounter (statuses as of 12/16/2021) [facility] History of Past illness Narrative* Problem Noted Date Resolved Date Impotence 12/17/2014 06/27/2019 documented as of this encounter (statuses as of 12/22/2021) [facility] of Past illness Narrative* Problem Noted Date Resolved Date Impotence 12/17/2014 06/27/2019 documented as of this encounter (statuses as of 01/01/2022) [address] History of Past illness Narrative* Problem Noted Date Resolved Date Impotence 12/17/2014 06/27/2019 documented as of this encounter (statuses as of 01/08/2022) [address] History of Past illness Narrative* Problem Noted Date Resolved Date Impotence 12/17/2014 06/27/2019 documented as of this encounter (statuses as of 02/17/2022) [address] History of Past illness Narrative* Problem Noted Date Resolved Date Impotence 12/17/2014 06/27/2019 documented as of this encounter (statuses as of 02/17/2022) [address] History of Past illness Narrative* Problem Noted Date Resolved Date Impotence 12/17/2014 06/27/2019 documented as of this encounter (statuses as of 02/20/2022) [address] History of Past illness Narrative* Problem Noted Date Resolved Date Impotence 12/17/2014 06/27/2019 documented as of this encounter (statuses as of 02/21/2022) [address] History of Past illness Narrative* Problem Noted Date Resolved Date Impotence 12/17/2014 06/27/2019 documented as of this encounter (statuses as of 03/11/2022) [address] History of Past illness Narrative* Problem Noted Date Resolved Date Impotence 12/17/2014 06/27/2019 documented as of this encounter (statuses as of 03/12/2022) [address] History of Past illness Narrative* Problem Noted Date Resolved Date Impotence 12/17/2014 06/27/2019 documented as of this encounter (statuses as of 03/17/2022) [address] History of Past illness Narrative* Problem Noted Date Resolved Date Impotence 12/17/2014 06/27/2019 documented as of this encounter (statuses as of 03/18/2022) [address] History of Past illness Narrative* Problem Noted Date Resolved Date Impotence 12/17/2014 06/27/2019 documented as of this encounter (statuses as of 03/23/2022) [facility] Narrative* Problem Noted Date Resolved Date Impotence 12/17/2014 06/27/2019 documented as of this encounter (statuses as of 04/20/2022) [address] History of Past illness Narrative* Problem Noted Date Resolved Date Impotence 12/17/2014 06/27/2019 documented as of this encounter (statuses as of 04/28/2022) [address] History of Past illness Narrative* Problem Noted Date Resolved Date Impotence 12/17/2014 06/27/2019 documented as of this encounter (statuses as of 06/25/2022) [address] History of Past illness Narrative* Problem Noted Date Resolved Date Impotence 12/17/2014 06/27/2019 documented as of this encounter (statuses as of 07/01/2022) [address] History of Past illness Narrative* Problem Noted Date Resolved Date Impotence 12/17/2014 06/27/2019 documented as of this encounter (statuses as of 07/16/2022) [address] History of Past illness Narrative* Problem Noted Date Resolved Date Impotence 12/17/2014 06/27/2019 documented as of this encounter (statuses as of 08/05/2022) [address] History of Past illness Narrative* Problem Noted Date Resolved Date Impotence 12/17/2014 06/27/2019 documented as of this encounter (statuses as of 10/05/2022) [address] History of Past illness Narrative* Problem Noted Date Resolved Date Impotence 12/17/2014 06/27/2019 documented as of this encounter (statuses as of 10/14/2022) [address] History of Past illness Narrative* Problem Noted Date Resolved Date Impotence 12/17/2014 06/27/2019 documented as of this encounter (statuses as of 01/11/2023) [address]-2015 History of Past illness Narrative* Problem Noted Date Diagnosed Date Resolved Date Impotence 12/17/2014 06/27/2019 documented as of this encounter (statuses as of 04/21/2023) [facility] note* Diagnosis Bipolar disorder, current episode mixed, moderate (HCC) Bipolar I disorder, most recent episode (or current) mixed, moderate documented in this encounter [facility] note* Diagnosis Idiopathic chronic gout without tophus, unspecified site documented in this encounter [facility] note* Diagnosis Medication monitoring encounter- Primary Encounter for therapeutic drug monitoring Bipolar disorder, current episode mixed, moderate (HCC) Bipolar I disorder, most recent episode (or current) mixed, moderate documented in this encounter [facility] note* Diagnosis Bipolar disorder, current episode mixed, moderate (HCC) Bipolar I disorder, most recent episode (or current) mixed, moderate Medication monitoring encounter Encounter for therapeutic drug monitoring documented in this encounter [facility] note* Diagnosis Benign prostatic hyperplasia with weak urinary stream- Primary Overweight Bipolar disorder, current episode mixed, moderate (HCC) Bipolar I disorder, most recent episode (or current) mixed, moderate Idiopathic chronic gout without tophus, unspecified site Stage 3a chronic kidney disease (HCC) Essential hypertension, benign Medication monitoring encounter Encounter for therapeutic drug monitoring Pancytopenia (HCC) Other pancytopenia ED (erectile dysfunction) of organic origin Impotence of organic origin documented in this encounter [facility] note* Diagnosis Medication monitoring encounter Encounter for therapeutic drug monitoring documented in this encounter [facility] note* Diagnosis Bipolar disorder, current episode mixed, moderate (HCC) Bipolar I disorder, most recent episode (or current) mixed, moderate documented in this encounter [facility] note* Diagnosis Onychomycosis- Primary Dermatophytosis of nail Atherosclerosis of [place] artery of both lower extremities, with unspecified presence of clinical manifestation (HCC) Corns and callosities Pain in toes of both feet documented in this encounter [facility] note* Diagnosis Onychomycosis- Primary Dermatophytosis of nail Hammer toe of left foot Atherosclerosis of [place] artery of both lower extremities, with unspecified presence of clinical manifestation (HCC) Corns and callosities Pain in toes of both feet documented in this encounter [facility] note* Diagnosis Hammer toe of left foot- Primary Onychomycosis Dermatophytosis of nail Atherosclerosis of [place] artery of both lower extremities, with unspecified presence of clinical manifestation (HCC) Pain in both feet Pain in limb [facility] Bipolar disorder, current episode mixed, moderate (HCC) Bipolar I disorder, most recent episode (or current) mixed, moderate documented in this encounter [facility] Summary Purpose Family History No Family History Records FoundNo Family History Records FoundNo Family History Records FoundNo Family History Records FoundNo Family History Records FoundNo Family History Records Found Advance Directives Documents on File Type Date Recorded Patient Technical Operations Manager Expl anation Advance Directives and Living Will Power of Cloth Booker Documents on File Type Date Recorded Patient Technical Operations Manager Expl anation Advance Directive(s) 04/19/2019 5:56 AM Discharge Instructions * Attachments The following attachments cannot be sent through Care Everywhere. * Edema: Leg and Ankle (Amharic) * Shoulder Arthritis: Exercises (Amharic) documented in this encounter Assessments Diagnosis Peripheral edema- Primary Edema Osteophyte of right shoulder Other affections of shoulder region, not elsewhere classified Additional Source Comments (unrecognized sect ion and content) No Status Records FoundNo Status Records FoundNo Status Records FoundNo Status Records FoundNo Status Records FoundNo Status Records Found INFORMATION SOURCE (unrecogn ized section and content) DATE CREATED AUTHOR AUTHOR'S ORGANIZ ATION 06/10/2020 [facility] DATE CREATED AUTHOR AUTHOR'S ORGANIZ ATION 06/13/2022 [facility] DATE CREATED AUTHOR AUTHOR'S ORGANIZ ATION 07/01/2022 [facility] DATE CREATED AUTHOR AUTHOR'S ORGANIZ ATION 07/03/2022 [facility] DATE CREATED AUTHOR AUTHOR'S ORGANIZ ATION 04/04/2023 [facility] Reason for Visit (unrecogniz ed section and content) Reason Onset Date Comments Refill Request 10/22/2021 Reason Comments Returning Patient's Call Reason Onset Date Comments Refill Request 11/21/2021 Reason Comments Results Reason Onset Date Comments Refill Request 12/16/2021 Reason Comments Refill Request Reason Comments Patient Update Reason Onset Date Comments Refill Request 02/17/2022 Reason Comments Medication Problem Reason Comments Follow Up Medication follow up Urinary Frequency Urinating frequently every 20 minutes Reason Comments Forms/letter CoverMyMeds prior Au tho: Omeprazole Reason Comments Patient Question meds Reason Comments Patient Question Reason Onset Date Comments Refill Request 03/23/2022 Reason Onset Date Comments Refill Request 04/20/2022 Reason Comments Nail Check Reason Comments Nail Check Corns Between 2nd and 3rd toes Left foot Reason Comments Received Outside Medical Records Dr. Avtar fontana, Jeff, & Javier Reason Comments Toe Pain (Toe) Second and third lef t toes Reason Onset Date Comments Refill Request 04/21/2023 Source Comments (unrecognize d section and content) In the event this informatio n is protected by the Federal Confidentiality of Alcohol and Drug Abuse Patient Records regulations: The Federal rules restrict any use of the information to criminally investigate or prosecute any alcohol or drug abuse patient.[facility] the event this information is protected by the Federal Confidentiality of Alcohol and Drug Abuse Patient Records regulations: The Federal rules restrict any use of the information to criminally investigate or prosecute any alcohol or drug abuse patient.[facility] the event this information is protected by the Federal Confidentiality of Alcohol and Drug Abuse Patient Records regulations: The Federal rules restrict any use of the information to criminally investigate or prosecute any alcohol or drug abuse patient.[facility] the event this information is protected by the Federal Confidentiality of Alcohol and Drug Abuse Patient Records regulations: The Federal rules restrict any use of the information to criminally investigate or prosecute any alcohol or drug abuse patient.[facility] the event this information is protected by the Federal Confidentiality of Alcohol and Drug Abuse Patient Records regulations: The Federal rules restrict any use of the information to criminally investigate or prosecute any alcohol or drug abuse patient.[facility] the event this information is protected by the Federal Confidentiality of Alcohol and Drug Abuse Patient Records regulations: The Federal rules restrict any use of the information to criminally investigate or prosecute any alcohol or drug abuse patient.[facility] the event this information is protected by the Federal Confidentiality of Alcohol and Drug Abuse Patient Records regulations: The Federal rules restrict any use of the information to criminally investigate or prosecute any alcohol or drug abuse patient.[facility] the event this information is protected by the Federal Confidentiality of Alcohol and Drug Abuse Patient Records regulations: The Federal rules restrict any use of the information to criminally investigate or prosecute any alcohol or drug abuse patient.[facility] the event this information is protected by the Federal Confidentiality of Alcohol and Drug Abuse Patient Records regulations: The Federal rules restrict any use of the information to criminally investigate or prosecute any alcohol or drug abuse patient.[facility] the event this information is protected by the Federal Confidentiality of Alcohol and Drug Abuse Patient Records regulations: The Federal rules restrict any use of the information to criminally investigate or prosecute any alcohol or drug abuse patient.[facility] the event this information is protected by the Federal Confidentiality of Alcohol and Drug Abuse Patient Records regulations: The Federal rules restrict any use of the information to criminally investigate or prosecute any alcohol or drug abuse patient.[facility] the event this information is protected by the Federal Confidentiality of Alcohol and Drug Abuse Patient Records regulations: The Federal rules restrict any use of the information to criminally investigate or prosecute any alcohol or drug abuse patient.[facility] the event this information is protected by the Federal Confidentiality of Alcohol and Drug Abuse Patient Records regulations: The Federal rules restrict any use of the information to criminally investigate or prosecute any alcohol or drug abuse patient.[facility] the event this information is protected by the Federal Confidentiality of Alcohol and Drug Abuse Patient Records regulations: The Federal rules restrict any use of the information to criminally investigate or prosecute any alcohol or drug abuse patient.[facility] the event this information is protected by the Federal Confidentiality of Alcohol and Drug Abuse Patient Records regulations: The Federal rules restrict any use of the information to criminally investigate or prosecute any alcohol or drug abuse patient.[facility] the event this information is protected by the Federal Confidentiality of Alcohol and Drug Abuse Patient Records regulations: The Federal rules restrict any use of the information to criminally investigate or prosecute any alcohol or drug abuse patient.[facility] the event this information is protected by the Federal Confidentiality of Alcohol and Drug Abuse Patient Records regulations: The Federal rules restrict any use of the information to criminally investigate or prosecute any alcohol or drug abuse patient.[facility] the event this information is protected by the Federal Confidentiality of Alcohol and Drug Abuse Patient Records regulations: The Federal rules restrict any use of the information to criminally investigate or prosecute any alcohol or drug abuse patient.[facility] the event this information is protected by the Federal Confidentiality of Alcohol and Drug Abuse Patient Records regulations: The Federal rules restrict any use of the information to criminally investigate or prosecute any alcohol or drug abuse patient.[facility] the event this information is protected by the Federal Confidentiality of Alcohol and Drug Abuse Patient Records regulations: The Federal rules restrict any use of the information to criminally investigate or prosecute any alcohol or drug abuse patient.[facility] the event this information is protected by the Federal Confidentiality of Alcohol and Drug Abuse Patient Records regulations: The Federal rules restrict any use of the information to criminally investigate or prosecute any alcohol or drug abuse patient.[facility] the event this information is protected by the Federal Confidentiality of Alcohol and Drug Abuse Patient Records regulations: The Federal rules restrict any use of the information to criminally investigate or prosecute any alcohol or drug abuse patient.[facility] the event this information is protected by the Federal Confidentiality of Alcohol and Drug Abuse Patient Records regulations: The Federal rules restrict any use of the information to criminally investigate or prosecute any alcohol or drug abuse patient.[facility] the event this information is protected by the Federal Confidentiality of Alcohol and Drug Abuse Patient Records regulations: The Federal rules restrict any use of the information to criminally investigate or prosecute any alcohol or drug abuse patient.[facility] the event this information is protected by the Federal Confidentiality of Alcohol and Drug Abuse Patient Records regulations: The Federal rules restrict any use of the information to criminally investigate or prosecute any alcohol or drug abuse patient.[facility] the event this information is protected by the Federal Confidentiality of Alcohol and Drug Abuse Patient Records regulations: The Federal rules restrict any use of the information to criminally investigate or prosecute any alcohol or drug abuse patient.[facility] the event this information is protected by the Federal Confidentiality of Alcohol and Drug Abuse Patient Records regulations: The Federal rules restrict any use of the information to criminally investigate or prosecute any alcohol or drug abuse patient.[facility] Teams (unrecognized sec tion and content) [employer] Member Relationship Specialty Start Date End Date Dell Reeves MD PCP - General Family Practice 03/16/14 [employer] Member Relationship Specialty Start Date End Date Dell Reeves MD PCP - General Family Practice 03/16/14 [employer] Member Relationship Specialty Start Date End Date Dell Reeves MD PCP - General Family Practice 03/16/14 [employer] Member Relationship Specialty Start Date End Date Dell Reeves MD PCP - General Family Practice 03/16/14 [employer] Member Relationship Specialty Start Date End Date Dell Reeves MD PCP - General Family Practice 03/16/14 [employer] Member Relationship Specialty Start Date End Date Dell Reeves MD PCP - General Family Practice 03/16/14 [employer] Member Relationship Specialty Start Date End Date Dell Reeves MD PCP - General Family Practice 03/16/14 [employer] Member Relationship Specialty Start Date End Date Dell Reeves MD PCP - General Family Practice 03/16/14 [employer] Member Relationship Specialty Start Date End Date Dell Reeves MD PCP - General Family Practice 03/16/14 [employer] Member Relationship Specialty Start Date End Date Dell Reeves MD [address] [address] PCP - General Family Practice 03/17/22 [employer] Member Relationship Specialty Start Date End Date Dell Reeves MD [address] [address] PCP - General Family Practice 03/17/22 [employer] Member Relationship Specialty Start Date End Date Dell Reeves MD [address] [address] PCP - General Family Practice 03/17/22 [employer] Member Relationship Specialty Start Date End Date Dell Reeves MD [address] [address] PCP - General Family Medicine 03/17/22 [employer] Member Relationship Specialty Start Date End Date Dell Reeves MD [address] [address] PCP - General Family Medicine 03/17/22 [employer] Member Relationship Specialty Start Date End Date Dell Reeves MD [address] [address] PCP - General Family Medicine 03/17/22 [employer] Member Relationship Specialty Start Date End Date Dell Reeves MD [address] [address] PCP - General Family Medicine 03/17/22 [employer] Member Relationship Specialty Start Date End Date Dell Reeves MD [address] [address] PCP - General Family Medicine 03/17/22 [employer] Member Relationship Specialty Start Date End Date Dell Reeves MD [address] [address] [place] [address] PCP - General Family Medicine 03/17/22 [employer] Member Relationship Specialty Start Date End Date Dell Reeves MD [address] [facility] [address] [place], [place] [id number] PCP - General Family Medicine 03/17/22 [employer] Member Relationship Specialty Start Date End Date Dell Reeves MD [address] [facility] [address] [place], [place] [id number] PCP - General Family Medicine 03/17/22 <item> Privacy Markings (unrecogniz ed section and content) Section Author: Mimi Kaufman PROHIBITION ON REDISCLOSURE OF CONFIDENTIAL INFORMATION This notice accompanies a disclosure of information concerning a client made to you with the consent of such client. FOR RECORDS PERTAINING TO PATIENTS WHO ARE OR HAVE BEEN ENROLLED IN A CHEMICAL DEPENDENCY/SUBSTANCEABUSE PROGRAM, SOME INFORMATION MAY BE OMITTED. This clinical summary was aggregated from multiple sources. Caution should be exercised in using it in the provision of clinical care. This summary normalizes information from multiple sources, and as a consequence, information in this document may materially change the coding, format and clinical context of patient data. In addition, data may be omitted in some cases. CLINICAL DECISIONS SHOULD BE BASED ON THE PRIMARY CLINICAL RECORDS. [employer] provides no warranty or guarantee of the accuracy or completeness of information in this document.
== END 2023-07-27 17:01 | disposition home or self-care (01) ==
LOC: ED 16:57
PROVIDERS: Emergency Provider Emergency Medicine; Visit Provider Emergency Medicine
DX: K04.7 Periapical abscess without sinus (principal); R59.9 Enlarged lymph nodes, unspecified; K02.9 Dental caries, unspecified
CPT/HCPCS: 99282

== ENCOUNTER 2023-08-30 08:50 | Emergency (ER) | payer MEDICARE, SELFPAY ==
[2023-08-30 08:51] VITALS: BP 220/92; PULSE 57; RESP 16; TEMP 36.6; O2SAT 99; BMI 28.8
--- NOTE | 2023-08-30 09:05 | ED.VIS.DENTA ---
HPI History of Present Illness Chief Complaint: Dental Detail of Chief Complaint: Dental pain Informant: patient Narrative Narrative: Patient presents to the emergency department with complaint abdominal pain that started 4 days ago. Patient states that he was seen by his primary care physician 5 or 6 days ago in the office and at that time his blood pressure initially was in the 160s or 170s systolic and after resting it came down to the 130s. This morning he forgot to take his blood pressure medicine. He does have history of anxiety. Patient states that he cannot get into a dentist for 5 to 6 weeks. He has poor dentition and has had problems with his teeth before patient was seen in the emergency department about a month ago and started on amoxicillin. Patient denies any fevers or chills or sweats. PFSH PFSH Medical History Anxiety Bipolar 1 disorder Gout Home Medications amoxicillin 500 mg tablet 500 mg PO TID #30 tabs 05/08/23 [Rx Last Taken Unknown] buspirone 15 mg tablet 15 mg PO TID 05/08/23 [History Last Taken Unknown] carbamazepine 100 mg tablet,extended release,12 hr (Tegretol XR) 100 mg PO DAILY 05/08/23 [History Last Taken Unknown] amoxicillin 500 mg capsule 500 mg PO TID #30 caps 07/27/23 [Rx Last Taken Unknown] clindamycin HCl 300 mg capsule (Cleocin HCl) 300 mg PO Q6H #40 CAPSULES 08/30/23 [Rx Last Taken Unknown] Allergy/AdvReac Type Severity Reaction Status Date / Time Penicillins AdvReac Diarrhea Verified 08/30/23 08:53 Social History Smoking Status: Never smoker ROS ROS ED Review of Systems ROS Unobtainable: other Constitutional Constitutional ED: Reports lethargy; Denies chills, fever(s), sweats or weight loss Eyes Eyes: Denies blurry vision, change in vision or diplopia ENT ENT ED: Reports other Details: Dental pain ; Denies rhinorrhea or sore throat Cardiovascular Cardiovascular: Denies chest pain, orthopnea or racing heartbeat Respiratory/Chest Respiratory/Chest: Denies cough, dyspnea, dyspnea on exertion, orthopnea or sputum Gastrointestinal Gastrointestinal: Denies abdominal pain, diarrhea, nausea or vomiting Genitourinary Genitourinary ED: Denies dysuria, hematuria or urinary frequency Musculoskeletal Musculoskeletal: Denies arthralgias, back pain, myalgias or neck pain Integumentary Denies abscess, Abrasions or rash Neurologic Neurologic: Denies headache(s) or weakness Psychiatric Psychiatric: Denies anxiety, depression or suicidal thoughts Endocrine Endocrinology: Denies polydipsia, polyphagia or polyuria Hematologic/Lymphatic Hematologic/Lymphatic: Denies easy bleeding, easy bruising or lymphadenopathy Allergic/Immunologic Allergic/Immunologic ED: Denies mouth swelling, tongue swelling or urticaria EXAM Physical Exam Const Vital Signs: 08/30/23 08:51 Temperature 97.9 F Temperature Source Temporal Pulse Rate 57 L Respiratory Rate 16 Blood Pressure 220/92 H Blood Pressure Mean 134 Pulse Ox 99 Oxygen Delivery Method Room Air Positive well nourished and well developed General Appearance ED: well developed and NAD HEENT Reports TM's clear and moist mucous membranes HEENT Narrative: Dentition-patient has multiple broken and carried lower incisors as well as premolars. He does have a gingival abscess anterior to the right incisors. Area is fluctuant with a white point noted. normocephalic and atraumatic; Negative for trauma or tenderness Tympanic Membrane ED: Yes TM's clear Eyes PERRL and EOMs intact bilaterally General Eye ED: Negative for pale conjunctiva or scleral icterus Neck no lymphadenopathy, supple and no JVD General: Negative for tenderness Chest Wall inspection of chest normal and palpation of chest normal Chest: Negative for tenderness Resp normal respiratory effort and clear to auscultation bilaterally Effort and Inspection: Negative for respiratory distress or pain with movement Auscultation: Negative for rhonchi, wheezes or diminished lung sounds Cardio regular rate, regular rhythm, S1 normal heart sound, S2 normal heart sound and no murmurs Peripheral Pulses: pulses 2+ throughout GI normal to inspection, nondistended, normoactive bowel sounds, soft to palpation, non-tender, non-distended and no masses Back/Spine no CVA tenderness and no thoracic nor lumbar tenderness Extremity normal to inspection General Extremety ED: Negative for edema General Extremity: Negative for edema Neuro oriented x3, CN's II-XII intact bilaterally, no sensory deficits noted and gait normal Sensorium / Orientation: awake, alert, oriented to person, oriented to place and oriented to time Motor Exam: strength 5/5 throughout and strength abnormal Psych mental status grossly normal Skin no rashes or lesions noted and no wounds MDM MDM MDM Narrative Medical decision making narrative: Patient was offered incision and drainage of the abscess to which he agreed. I was able to make a stab incision and large amount of purulent free-flowing debris was expressed. Patient was started on clindamycin. I did give him a dose of his lisinopril 10 mg that he takes normally. Will reevaluate his blood pressure prior to discharge. He has no cardiac symptoms. Will give patient list of dentists in the area to follow-up with. Discharge Plan Triage Chief Complaint: Dental ED Provider: Shari Marcus Dx/Rx/DC Orders Clinical Impression: Abscess, dental, Hypertension Instructions: ED Dental Pain, ED Hypertension, Established Prescriptions: New clindamycin HCl [Cleocin HCl] 300 mg capsule 300 mg PO Q6H Qty: 40 0RF No Action amoxicillin 500 mg capsule 500 mg PO TID Qty: 30 0RF buspirone 15 mg tablet 15 mg PO TID carbamazepine [Tegretol XR] 100 mg tablet extended release 12 hr 100 mg PO DAILY amoxicillin 500 mg tablet 500 mg PO TID Qty: 30 0RF Primary Care Provider: DELL ASIF Referrals: DELL ASIF [Other] Rogelio Collins MD [Med Staff - Active Staff] - 3-5 Days Activity Restrictions/Additional Instructions: See a dentist at the earliest possible time to evaluate and treat. Disposition Disposition: Home, Self Care
[2023-08-30] MEDS: Clindamycin HCl 150 MG Capsule 300 MG PO (09:22)
[2023-08-30 09:24] VITALS: BP 170/84; PULSE 76; RESP 16; TEMP 36.4; O2SAT 99
--- NOTE | 2023-08-30 09:27 | ED.RN ---
pt refused lisinopril. states he will take his own when he gets home
--- OUTSIDE RECORDS SUMMARY | 2023-08-30 09:38 | XMS RPT_ITS | CCD ---
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 freely mobil, nontender, smooth, soft Cardiovascular: Rate and Rhythm: Normal rate and regular rhythm. Heart sounds: Normal heart sounds. Pulmonary: Effort: Pulmonary effort is normal. Breath sounds: Normal breath sounds. Abdominal: Comments: Easily reducible 1-cm umbilical hernia Musculoskeletal: Cervical back: Normal range of motion and neck supple. Right lower leg: No edema. Left lower leg: No edema. Skin: General: Skin is warm and dry. Neurological: General: No focal deficit present. Mental Status: He is alert and oriented to person, place, and time. Psychiatric: Mood and Affect: Mood normal. Behavior: Behavior normal. Thought Content: Thought content normal. Judgment: Judgment normal. Dell Asif MD documented in this encounter [facility] documented as of this encounter (statuses as of 08/25/2023) [facility]01-30-2024 NotePatient Outreach (INTMMN) GORGE SANCHEZ ([id number]) 1950 M Date Time Provider Department 08/10/23 DELL ASIF INTLISSETTE During your visit today, we recorded the following information about you: Allergies As of Date: 08/10/2023 Noted Allergy Reaction NSAIDS (NON-STEROIDAL ANTI-INFLAM*11/09/2014 14 - Other: See Comments Comments: Elevated creatinine PENICILLINS 05/26/2007 Date Reviewed: 10/05/2022 Reviewed by: Sakina Rodriguez DPM - Fully Assessed Visit Diagnosis:Hypertensive kidney disease with stage 3b chronic kidney disease (HCC) [I12.9, N18.32] Order(s):BASIC METABOLIC PNL [SQBMP] Order #: [id number] FUTURE CBC [SQCBC] Order #: [id number] FUTURE RENAL FUNCTION PANEL [SQRFP] Order #: [id number] FUTURE Prescriptions as of 08/13/2023 - busPIRone (BUSPAR) 15 mg tablet Take 1 tablet by mouth three times daily. - methocarbamol (ROBAXIN) 500 mg tablet Take 1 tablet by mouth every 8 hours as needed. - senna (SENOKOT) 8.6 mg tab Take 1 tablet by mouth twice daily. - QUEtiapine (SEROQUEL) 25 mg tablet Take 1 tablet by mouth daily at bedtime. - omeprazole (PRILOSEC) 20 mg capsule Take 1 capsule by mouth once daily. - carBAMazepine (TEGRETOL) 200 mg tablet Take 3 in AM and 2.5 in PM. - allopurinol (ZYLOPRIM) 100 mg tablet Take 2 tablets by mouth once daily. - ARIPiprazole (ABILIFY) 5 mg tablet Take 1 tablet by mouth once daily. - Tadalafil (CIALIS) 5 mg tablet Take 1 tablet by mouth as needed. 1-2 hours before sexual intercourse - acetaminophen (TYLENOL) 500 mg tablet Take 500 mg by mouth. 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 Thanks, Destinee Gould APRN.SLIP MAKER Office of Dr. Dell Asif [facility] * Telephone Encounter - Lana Cartagena - 01/11/2023 11:36 AM EDT Spoke with patient who states he ran out of buspar yesterday. Has been unable to reach psychiatristto determine refill status. Asking for a temporary supply to hold him. Dr. Asif agrees to send in 1 refill only. Rx pended, pharmacy verified No need for call back Lana Cartagena documented [facility]04[facility]23 Miscellaneous Notes* Telephone Encounter - Lana Cartagena - 10/14/2022 12:10 PM EDT Situation: Covid exposure Background: spoke with patient. States he was exposed to someone with Covid while he was in a car several days ago. States he is asymptomatic and fully vaccinated. Assessment: Could he have Covid? Should he be tested? Recommendation/request: Advised patient to monitor for symptoms and test if he becomes symptomatic.We would be happy to see him for a virtual visit if he would like. I am not able to give him any further advice. Lana Cartagena * Telephone Encounter - Aurora Jones RN - 10/14/2022 10:01 AM EDT Pt notified front office yesterday that his sister has Covid and he had questions regarding his exposure. Pt is asymptomatic and stated he's out of town. Left another message to call office in attempts to answer patient's questions. * Telephone Encounter - Aurora Jones RN - 10/14/2022 8:25 AM EDT I called patient, no answer. Not identified. Left message to call office. Aurora Jones RN * Telephone Encounter - Linda Laureano - 10/13/2022 4:25 PM EDT Name: Gorge Sanchez called today. : 1950 (home) [phone] (cell) Reason for call: Clyde would like Analy :) to please call him new # [phone] Covid question. Patient did not say he had it. Linda Laureano documented [facility]03-27-2023 Instructions* Patient Instructions* Sakina Rodriguez DPM - 10/05/2022 2:56 PM EDT Patient instructions given. documented in this encounterGreene [facility]03-27-2023 History of Present illness Narrative* Sakina Rodriguez DPM - 10/05/2022 2:55 PM EDT SUBJECTIVE: Gorge Sanchez presents to the office [...] encounter diagnosis) (B35.1) Onychomycosis (I70.203) Atherosclerosis of anvik artery of both lower extremities, with unspecified [...] CWSP, PCWC Board Certified Foot Surgeon and Croze Cutter documented in this encounterGreene [facility]03-27-2023 Nurse Note* Vivien Medeiros MA - 10/05/2022 2:17 PM EDT Gorge Sanchez is a 72 year old male who presents for Toe Pain (Toe) (Second and third left toes) Pt has been identified by name and birthdate: Yes Is the patient having any pain? Yes Any new problems or concerns? No Date of last visit with PCP: 08-05-22 Any hospitalizations since last visit? No Vivien Medeiros MA, MA documented in this encounterGreene [facility]01-25-2023 Miscellaneous Notes* Telephone Encounter - Lana Cartagena - 08/05/2022 11:39 AM EST Documents given to Dr. Asif for review then Forwarded to scanning Lana Cartagena * Telephone Encounter - Heike Check Paca - 08/05/2022 10:28 AM EST Recd via fax from [facility] [place] a behavioral health patient summary form. Placed in Dr. Asif folder for review. documented in this encounterGreene [facility]01-03-2023 Miscellaneous Notes* Telephone Encounter - Lana Hernandez Ct - 07/14/2022 3:23 PM EST Documents given to Dr. Asif for review then Forwarded to scanning Lana Benite[address] * Telephone Encounter - Nayeli Fang Patient Stove Bottom Worker - 07/14/2022 10:18 AM EST Outside Records received from: [employer] Outside Records received via: Faxed Form has been forwarded to: Dr. Asif documented in this encounterGreene [facility]12-21-2022 Nurse Note* Sharon Grimm MA - 07/01/2022 1:58 PM EST Gorge Sanchez is a 71 year old male who presents for Nail Check and Corns (Between 2nd and 3rd toes Left foot) Pt has been identified by name and birthdate: Yes Is the patient having any pain? Yes Any new problems or concerns? No Date of last visit with PCP: 03/11/22 Any hospitalizations since last visit? No Sharon Grimm MA documented in this [facility]12-21-2022 Instructions* Patient Instructions* Sakina Rodriguez DPM - 07/01/2022 1:29 PM EST Patient instructions given. documented in this encounterGreene [facility] Hospital12-21-2022 History of Present illness Narrative* Sakina Rodriguez DPM - 07/01/2022 1:27 PM EST SUBJECTIVE: Gorge Sanchez presents to the office [...] toe of left foot (I70.203) Atherosclerosis of anvik artery of both lower extremities, with unspecified [...] DPM, DABFAS, CWSP, CSWS documented in this encounterGreene [facility] Hospital12-12-2022 Miscellaneous Notes* Telephone Encounter - Lana Hernandez Ct - 06/22/2022 6:14 PM EST Tried to call patient, unable to leave message on provided number. Unfortunately Dr. Asif is not able to help. Lana Cartagena * Telephone Encounter - Dell Asif MD - 06/22/2022 5:58 PM EST Speak with Gorge, * Telephone Encounter - Nayeli Fang Patient Stove Bottom Worker - 06/22/2022 12:11 PM EST Name: Gorge Sanchez called today. : 1950 (home) [phone] (cell) Reason for call: patient called. He is in the hospital and would like to be discharged. States he has been very depressed and feels he would be better off if discharged. Wanted his caregivers to speak with Dr. Asif. The patients preferred pharmacy has been captured for this encounter? not asked Nayeli Fang Patient Stove Bottom Worker documented in this encounterGreene Memorial Hospital12-01-2022 NoteHNO ID: [id number] Author: JESS Pierre Tech Service: ? Author Type: Roustabout Head Type: Procedures Filed: 06/11/2022 11:16 AM Note Text: ZIO XT patch placed 06/11/2022, 11:00 a.m. Patient education completed Serial number of monitor:[id number] NoteHNO ID: [id number] Author: Josue Castro RN Service: Care Management [...] 10, 2022 TIME: 10:14 AM PAGER/CONTACT #: [phone] NoteHNO ID: [id number] Author: Melanie Gillis PA-C Service: Trauma Author Type: Physician Group Chief Operator Type: Progress Notes Filed: 06/10/2022 6:49 AM Note Text: .[facility] TRAUMA SERVICE PROGRESS NOTE MECHANISM OF INJURY: Fall from standing, ??amnestic [...] negative 06/07 Staff Trauma Surgeon: Dr. Jenkins CHIEF COMPLAINT/ HPI / PFSHx / EVENTS [...] made accordingly. Melanie Gillis PA-C 06/10/2022 Pager [phone] [facility]11-29-2022 NoteHNO ID: [id number] Author: Josue Castro RN Service: Care Management Author Type: Registered Nurse Type: Care Mgt Progress Note Filed: 06/09/2022 10:20 AM Note Text: CARE MANAGEMENT PROGRESS NOTE SERVICE DATE: 06/09/2022 SERVICE TIME: 10:17 AM LOS: 2 days Needs Prior to Discharge: Accepting Facility;Bed Availability;Precertification;Discharge Transportation [facility] spoke with patient sister Yoseph who reports patient is mentally unstable and doesn't follow medication regimen. Patients sister would like patient to go to a facility near [place]. Referral sent to [place] [facility] per patients and sister request. [facility] educated patients sister on the importance of seeking power of deputy attorney general education receptive. SIGNATURE: Josue Castro RN PATIENT NAME: Gorge Sanchez DATE: June 09, 2022 TIME: 10:17 AM PAGER/CONTACT #: [phone] NoteHNO ID: [id number] Author: Melanie Gillis PA-C Service: Trauma Author Type: Physician Group Chief Operator Type: Progress Notes Filed: 06/09/2022 5:32 AM Note Text: .[facility] TRAUMA SERVICE PROGRESS NOTE MECHANISM OF INJURY: Fall from standing, ??amnestic [...] negative 06/07 Staff Trauma Surgeon: Dr. Jenkins CHIEF COMPLAINT/ HPI / PFSHx / EVENTS [...] Melanie Gillis PA-C 06/09/2022 5:11 AM Pager [phone] [facility]11-28-2022 NoteHNO ID: [id number] Author: Jennifer Frias PA-C Service: Trauma Author Type: Physician Group Chief Operator Type: Progress Notes Filed: 06/08/2022 5:09 PM Note Text: .[facility] TRAUMA SERVICE PROGRESS NOTE MECHANISM OF INJURY: Fall from standing, ??amnestic [...] - Tolerating diet, will make NPO at [facility] tonight in the event pt decides to procede [...] TEST - 06/07/22 Staff Trauma Surgeon: Dr. eJnkins CHIEF COMPLAINT/ HPI / PFSHx / EVENTS [...] copied from Vanessa (more content not included)... [facility]11-28-2022 NoteHNO ID: [id number] Author: Blue Arteaga DO Service: Orthopaedic Surgery [...] surgery this admission. Will keep NPO at [facility] for further discussion as he is cleared by cardiology. Please contact the orthopedic resident cotton classer with any urgent questions or concerns. Blue Arteaga DO 06/08/2022 2:46 PM Orthopedic Surgery Resident [id number] Instructions* Patient Instructions* Sakina Rodriguez DPM - 04/28/2022 10:15 AM EDT Patient instructions given. documented in this encounterGreene Memorial Hospital10-18-2022 Nurse Note* Yumiko Turner MA - 04/28/2022 10:05 AM EDT Gorge Sanchez is a 71 year old male who presents for Nail Check Pt has been identified by name and birthdate: Yes Is the patient having any pain? Yes Any new problems or concerns? No Date of last visit with PCP: 03/26/2022 Any hospitalizations since last visit? No Yumiko Turner MA documented in this encounterGreene Memorial Hospital10-18-2022 History of Present illness Narrative* Sakina Rodriguez DPM - 04/28/2022 10:04 AM EDT SUBJECTIVE: Gorge Sanchez presents to the office [...] Onychomycosis (primary encounter diagnosis) (I70.203) Atherosclerosis of anvik artery of both lower extremities, with unspecified [...] DPM, DABFAS, CWSP, CSWS documented in this encounterGreene Memorial Hospital09-12-2022 Miscellaneous Notes* Telephone Encounter - Tiffanie Orellana RN - 03/23/2022 2:04 PM EDT Pt request to change script to 20 mg 1 capsule once daily due to insurance reasons. Tiffanie Orellana RN documented in this encounterGreene Memorial Hospital09-07-2022 Miscellaneous Notes* Telephone Encounter - Saul Bhagat MD - 03/18/2022 3:13 PM EDT Called patient back. Discussed chronic urinary frequency, which is actually improved over the last few months. His symptoms do not sound obstructive or is he having signficant issues voiding, rather his symptoms are more storage- related issue. Does not have significant post micturition symptoms. Discussed dietary changes. Patient frequently drinks soda and tea throughout the day. Advised reduction of these beverages and other caffeinated beverages. Patient does not drink significant alcohol.Offered urology referral and/or trial of tamsulosin, however patient declines for now and would like to trial dietary changes first. This is appropriate, and if patient continues to have bothersome symptoms then he will alert me and we may consider medication trial or urology referral. documented in this encounterGreene Memorial Hospital09-06-2022 Miscellaneous Notes* Telephone Encounter - Saul Bhagat MD - 03/17/2022 4:06 PM EDT Called and spoke to patient directly. Patient complains of chronic urinary frequency. He notes he does strain a little in the morning, but he does not endorse significant sensation of incomplete voiding. Rather, he simply states he just cannot hold urine like he used to. He would like something prescribed for this. Will reach out to patient tomorrow regarding medication options. * Telephone Encounter - Marly Villanueva Pss - 03/17/2022 2:53 PM EDT Patient has been identified by name and date of : Yes Reason for call: Patient returned Dr. Bhagat's call. Patient stated he had questions about frequenturination and it is irritating to him. Patient stated he has seen commercials for medication to help but wanted to speak with Dr. Bhagat in regards to something that can help. Please call patient back. personnel consultant: Patient Phone number: [phone] (home) * Telephone Encounter - Heike Check Paca - 03/17/2022 1:23 PM EDT Name: Gorge Sanchez called today. : 1950 (home) [phone] (cell) Reason for call: Pt called to discuss his appt on 03-11-22. Pt also has questions about his medications. Pt can be reached at [phone] (home) The patients preferred pharmacy has been captured for this encounter? no Heike Check Paca documented in this encounterGreene Memorial Hospital09-01-2022 Miscellaneous Notes* Telephone Encounter - Aurora Jones RN - 03/12/2022 2:46 PM EDT Cannot complete prior auth. Patients address and phone number do not match with insurance company. Ins. Company are requiring patient to call and update info prior to allowing office to process [place]. Pt notified VIA my chart. Aurora Jones RN ' * Telephone Encounter - Nayeli Fang Patient Stove Bottom Worker - 03/11/2022 7:55 PM EDT Patient has been identified by name and date of : Yes Type of form: Prior Authorization Form received via: Fax When form is completed, fax form to fax number provided. Form has been forwarded to: Provider's mailbox. Provider name: Dr. Laya Fang Patient Stove Bottom Worker documented in this encounterGreene Memorial Hospital08-31-2022 Nurse Note* Aurora Jones RN - 03/11/2022 4:18 PM EDT Venipuncture performed to left antecubital. Number of tubes collected: 2 lavender and 2 mint. documented in this encounterGreene Memorial Hospital08-31-2022 History of Present illness Narrative* Saul Bhagat MD - 03/11/2022 3:00 PM EDT Office Visit Note Assessment & Plan 1. Benign prostatic hyperplasia with weak urinary stream Complains of mild LUTS-like symptoms suspicious for BPH. Check prostate labs. May consider trial oftamsulosin in the future. - PSA/PROSTSPECAG SCRN; Future [...] dose that he is currently taking. Monitor thyroidfunction given that he is on Seroquel. He does not follow with psychiatry. - carBAMazepine (TEGRETOL) 200 mg tablet; Take 3 in AM and 2.5 in PM. Dispense: 495 tablet; Refill:3 - ARIPiprazole (ABILIFY) 5 mg tablet; Take 1 tablet by mouth once daily. Dispense: 90 tablet; Refill: 3 - busPIRone (BUSPAR) 15 mg tablet; Take 1 tablet by mouth three times daily. Dispense: 270 tablet; Refill: 3 - QUEtiapine (SEROQUEL) 25 mg tablet; Take 1 tablet by mouth daily at bedtime. Dispense: 90 tablet;Refill: 3 - TSH BLD - T4 FREE/FREE [...] notify me if he does not statical <130/80.In that case, would consider increasing lisinopril dosage. [...] subsequent CBC. Repeat CBC with diff today. Ifpersistent then consider hematology consultation. - CBC + [...] appointment prior to more refills being sent. Notseen in this clinic in >1 year. C/o left shoulder pain s/p fall 3 months ago. No weakness. C/o slower urinary stream recently, has to urinate multiple times in the morning. Denies straining.Denies dysuria, significant nocturia, and hematuria. Mood and [...] normal. Judgment: Judgment normal. documented in this encounterGreene Memorial Hospital08-12-2022 Miscellaneous Notes* Telephone Encounter - Dell Asif MD - 02/20/2022 1:04 PM EDT Noted. Thank you. * Telephone Encounter - Marly Villanueva Pss - 02/20/2022 11:34 AM EDT Patient has been identified by name and [...] he needs to be seen in office. personnel consultant: Patient Phone number: [phone] (home) documented in this encounterGreene Memorial Hospital08-09-2022 Miscellaneous Notes* Telephone Encounter - Lana Cartagena - 02/17/2022 4:55 PM EDT Noted. Lana Cartagena * Telephone Encounter - Nayeli Fang Patient Stove Bottom Worker - 02/17/2022 4:35 PM EDT Patient called back. States he is upset with all the legal requirements for visits and he will pay for the script as written and to tell Dr. Asif will look for a new doctor. * Telephone Encounter - Aurora Jones RN - 02/17/2022 4:29 PM EDT Left message. It has been 13 months since patient has had office visit. Pt MUST see pcp or CIG[employer] P[employer]ER [employer] SHADER for office visit. Aurora Jones RN * Telephone Encounter - Nayeli Fang Patient Stove Bottom Worker - 02/17/2022 4:15 PM EDT Patient called requesting the following refill. Requested [...] a call back No Nayeli Fang Patient Stove Bottom Worker documented in this encounterGreene Memorial Hospital08-09-2022 Miscellaneous Notes* Telephone Encounter - Chuy Camargo APRN.CNP - 02/17/2022 9:19 AM EDT Please establish an appointment for your annual examination. Chuy Camargo APRN.CNP * Telephone Encounter - Tiffanie Orellana RN - 02/16/2022 12:04 PM EDT Pt request refill of quetiapine and omeprazole. Pt informed Quetiapine has refills. Pt states does not go to that pharmacy anymore and request scripts be sent to [facility] in [facility] [place]. [address]. Order pended. Pharmacy verified. Tiffanie Orellana RN documented in this encounterGreene Memorial Hospital07-25-2022 Miscellaneous Notes* Telephone Encounter - Lana Cartagena - 02/02/2022 3:56 PM EDT Noted. Thank you. Will forward to the provider as SALIMA Cartagena * Telephone Encounter - Marly Villanueva Pss - 02/02/2022 3:43 PM EDT Patient has been identified by name and date of : Yes Reason for call: Patient called in regarding buspar. Pt stated he keeps getting half of his scripts(135 tablets) instead of the 270. Informed pt [facility] has refills with the correct quantity. Pt stated he can't get to that pharmacy because he is in [place]. Pt stated he will call back in about 5 weeks to refill the med but would like it to be the 90 day, 3 refill with 270 tablets per refill. He would like it sent to [facility] in [place], [place] [address] when he calls back to get the refill. No need to contact patient, sending as SALIMA. personnel consultant: Patient Phone number: [phone] (home) documented in this encounterGreene Memorial Hospital06-30-2022 Miscellaneous Notes* Telephone Encounter - Lana Cartagena - 01/08/2022 1:40 PM EDT Spoke with patient who is upset that he had to make 2 copays for Buspar and wants to make sure thatany future refills will be for 270 pills. No need for call back Lana Cartagena documented in this encounterGreene Memorial Hospital06-23-2022 Miscellaneous Notes* Telephone Encounter - Mily Gallegos Ma - 01/01/2022 8:41 AM EDT Called patient and relayed message he is in [place] and that is the correct pharmacy. He also stated that his Buspar was sent to the pharmacy in [place] and in our system it was sent as 3 times a day 270 tabwith one refill but pharmacy said only written for 135 tabs. Mimi sending to local for written amount I will notify patient. Mily Gallegos Ma * Telephone Encounter - Catina Benz PA-C - 01/01/2022 8:15 AM EDT Yes, patient needs to continue to take this for maintenance. This helps prevent gout attacks from coming. Refills to [facility] in [place]. Please verify this is the correct pharmacy because I thought patient was in [place]. The following approved medication requests have been transmitted electronically: Pending Prescriptions: Disp Refills allopurinol (ZYLOPRIM) 100 mg tablet 180 tablet3 Sig: Take 2 tablets by mouth once daily. STEFANO: No Mimi Benz PA-C 01/01/2022, 8:14 AM * Telephone Encounter - Nayeli Fang Patient Stove Bottom Worker - 12/31/2021 5:10 PM EDT Patient called requesting the following refill. Pending [...] a call back No Nayeli Fang Patient Stove Bottom Worker [facility] Miscellaneous Notes* Telephone Encounter - Catina Benz PA-C - 12/16/2021 3:41 PM EDT Corrected quantity sent to pharmacy. The following approved medication requests have been transmitted electronically: Signed Prescriptions Disp Refills busPIRone (BUSPAR) 15 mg tablet 270 tablet 1 Sig: Take 1 tablet by mouth three times daily. STEFANO: No Authorizing Provider: CATINA BENZ PA-C 12/16/2021, 3:41 PM * Telephone Encounter - Tiffanie Orellana RN - 12/16/2021 3:32 PM EDT Pt states buspirone only prescribed for 45 days and should be 90 days (270 tablets). Pt complainingthat it cost him more money the way it was prescribed. Tiffanie Orellana RN documented [facility]22 Miscellaneous Notes* Telephone Encounter - Nayeli Fang Patient Stove Bottom Worker - 12/16/2021 2:05 PM EDT Patient called back and confirmed the pharmacy script was sent to. * Telephone Encounter - Catina Benz PA-C - 12/16/2021 1:37 PM EDT Refilled. FYI to Dr. Asif about patient's move to [place]. The following approved medication requests have been transmitted electronically: Pending Prescriptions: Disp Refills carBAMazepine (TEGRETOL) 200 mg tablet 495 tablet0 Sig: Take 3 in AM and 2.5 in PM. STEFANO: No busPIRone (BUSPAR) 15 mg tablet 135 tablet1 Sig: Take 1 tablet by mouth three times daily. STEFANO: No Mimi Benz PA-C 12/16/2021, 1:36 PM documented in [facility] encounter[facility]22 Miscellaneous Notes* Telephone Encounter - Catina Benz PA-C - 11/27/2021 1:49 PM EDT Gorge called. Reports urinary urgency and some leakage of urine recently. I recommended in-personevaluation so we can do prostate exam, urinalysis, and labs. Patient amenable to plan. He states heis going to need to call back to schedule this visit. documented in [facility] encounter[facility]22 Miscellaneous Notes* Telephone Encounter - Dell Asif MD - 11/21/2021 12:37 PM EDT The following approved medication requests have been transmitted electronically. Pending Prescriptions: Disp Refills ARIPiprazole (ABILIFY) 5 mg tablet 90 tablet 1 Sig: Take 1 tablet by mouth once daily. 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 Pending Prescriptions Disp Refills ARIPIPRAZOLE 5 MG TABLET 90 tablet 1 Sig: Take 1 tablet by mouth once daily. STEFANO: No patient would like 90 days if possible. Patient is moving back to the [facility]. Caller's (home) [phone] (cell) Patient's last office visit was on 02/04/21 Request is for script(s) to be E-script to pharmacy. 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 I am returning his call [phone] documented in this encounterGre[facility]04-13-2022 Miscellaneous Notes* Telephone Encounter - Tiffanie Orellana RN - 10/22/2021 8:21 AM EDT Pt request refill of lisinopril. Pt informed there should be one more remaining refill and to contact his pharmacy. Pt verbalized understanding. Tiffanie Orellana RN documented in this encounterGre[facility]06[facility] History of Past illness Narrative* Problem Noted Date Resolved Date Impotence 12/17/2014 06/27/2019 documented as of this encounter (statuses as of 10/22/2021) [facility] Narrative* Problem Noted Date Resolved Date Impotence 12/17/2014 06/27/2019 documented as of this encounter (statuses as of 10/27/2021) [facility] Narrative* Problem Noted Date Resolved Date Impotence 12/17/2014 06/27/2019 documented as of this encounter (statuses as of 11/21/2021) [facility] Narrative* Problem Noted Date Resolved Date Impotence 12/17/2014 06/27/2019 documented as of this encounter (statuses as of 11/27/2021) [facility] N[facility]ative* Problem Noted Date Resolved Date Impotence 12/17/2014 06/27/2019 documented as of this encounter (statuses as of 12/16/2021) [facility] Narrative* Problem Noted Date Resolved Date Impotence 12/17/2014 06/27/2019 documented as of this encounter (statuses as of 12/22/2021) [address] History of Past illness Narrative* Problem Noted Date Resolved Date Impotence 12/17/2014 06/27/2019 documented as of this encounter (statuses as of 01/01/2022) [address] History of Past illness Narrative* Problem Noted Date Resolved Date Impotence 12/17/2014 06/27/2019 documented as of this encounter (statuses as of 01/08/2022) [address] History of Past illness Narrative* Problem Noted Date Resolved Date Impotence 12/17/2014 06/27/2019 documented as of this encounter (statuses as of 02/17/2022) [address] History of Past illness Narrative* Problem Noted Date Resolved Date Impotence 12/17/2014 06/27/2019 documented as of this encounter (statuses as of 02/17/2022) [address] History of Past illness Narrative* Problem Noted Date Resolved Date Impotence 12/17/2014 06/27/2019 documented as of this encounter (statuses as of 02/20/2022) [address] History of Past illness Narrative* Problem Noted Date Resolved Date Impotence 12/17/2014 06/27/2019 documented as of this encounter (statuses as of 02/21/2022) [address] History of Past illness Narrative* Problem Noted Date Resolved Date Impotence 12/17/2014 06/27/2019 documented as of this encounter (statuses as of 03/11/2022) [address] History of Past illness Narrative* Problem Noted Date Resolved Date Impotence 12/17/2014 06/27/2019 documented as of this encounter (statuses as of 03/12/2022) [address] History of Past illness Narrative* Problem Noted Date Resolved Date Impotence 12/17/2014 06/27/2019 documented as of this encounter (statuses as of 03/17/2022) [address] History of Past illness Narrative* Problem Noted Date Resolved Date Impotence 12/17/2014 06/27/2019 documented as of this encounter (statuses as of 03/18/2022) [address] History of Past illness Narrative* Problem Noted Date Resolved Date Impotence 12/17/2014 06/27/2019 documented as of this encounter (statuses as of 03/23/2022) [address] History of Past illness Narrative* Problem Noted Date Resolved Date Impotence 12/17/2014 06/27/2019 documented as of this encounter (statuses as of 04/20/2022) [address] History of Past illness Narrative* Problem Noted Date Resolved Date Impotence 12/17/2014 06/27/2019 documented as of this encounter (statuses as of 04/28/2022) [address] History of Past illness Narrative* Problem Noted Date Resolved Date Impotence 12/17/2014 06/27/2019 documented as of this encounter (statuses as of 06/25/2022) [address] History of Past illness Narrative* Problem Noted Date Resolved Date Impotence 12/17/2014 06/27/2019 documented as of this encounter (statuses as of 07/01/2022) [address] History of Past illness Narrative* Problem Noted Date Resolved Date Impotence 12/17/2014 06/27/2019 documented as of this encounter (statuses as of 07/16/2022) [address] History of Past illness Narrative* Problem Noted Date Resolved Date Impotence 12/17/2014 06/27/2019 documented as of this encounter (statuses as of 08/05/2022) [address] History of Past illness Narrative* Problem Noted Date Resolved Date Impotence 12/17/2014 06/27/2019 documented as of this encounter (statuses as of 10/05/2022) [address] History of Past illness Narrative* Problem Noted Date Resolved Date Impotence 12/17/2014 06/27/2019 documented as of this encounter (statuses as of 10/14/2022) [address] History of Past illness Narrative* Problem Noted Date Resolved Date Impotence 12/17/2014 06/27/2019 documented as of this encounter (statuses as of 01/11/2023) [facility]* Problem Noted Date Diagnosed Date Resolved Date Impotence 12/17/2014 06/27/2019 documented as of this encounter (statuses as of 04/21/2023) [facility] Narrative* Problem Noted Date Diagnosed Date Resolved Date Impotence 12/17/2014 06/27/2019 documented as of this encounter (statuses as of 08/13/2023) [facility] note* Diagnosis Bipolar disorder, current episode mixed, moderate (HCC) Bipolar I disorder, most recent episode (or current) mixed, moderate documented in this encounter [facility] note* Diagnosis Idiopathic chronic gout without tophus, unspecified site documented in this encounter [facility] note* Diagnosis Medication monitoring encounter- Primary Encounter for therapeutic drug monitoring Bipolar disorder, current episode mixed, moderate (HCC) Bipolar I disorder, most recent episode (or current) mixed, moderate documented in this encounter [facility] note* Diagnosis Bipolar disorder, current episode mixed, moderate (HCC) Bipolar I disorder, most recent episode (or current) mixed, moderate Medication monitoring encounter Encounter for therapeutic drug monitoring documented in this encounter [facility] note* Diagnosis Benign prostatic hyperplasia with weak [...] of organic origin documented in this encounter [facility] note* Diagnosis Medication monitoring encounter Encounter for therapeutic drug monitoring documented in this encounter [facility] note* Diagnosis Bipolar disorder, current episode mixed, moderate (HCC) Bipolar I disorder, most recent episode (or current) mixed, moderate documented in this encounter [facility] note* Diagnosis Onychomycosis- Primary Dermatophytosis of nail Atherosclerosis of [place] artery of both lower extremities, with unspecified presence of clinical manifestation (HCC) Corns and callosities Pain in toes of both feet documented in this encounter [facility] note* Diagnosis Onychomycosis- Primary Dermatophytosis of nail Hammer toe of left foot Atherosclerosis of an[place] artery of both lower extremities, with unspecified presence of clinical manifestation (HCC) Corns and callosities Pain in toes of both feet [facility] Diagnosis Hammer toe of left foot- Primary Onychomycosis Dermatophytosis of nail Atherosclerosis of an[place] artery of both lower extremities, with unspecified presence of clinical manifestation (HCC) Pain in both feet Pain in limb [facility]* Diagnosis Bipolar disorder, current episode mixed, moderate (HCC) Bipolar I disorder, most recent episode (or current) mixed, moderate [facility]* Diagnosis Hypertensive kidney disease with stage 3b chronic kidney disease (HCC) [facility] Diagnosis Bipolar disorder, current episode mixed, moderate (HCC)- Primary Bipolar I disorder, most recent episode (or current) mixed, moderate ACP (advance care planning) Other specified counseling Idiopathic chronic gout without tophus, 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 Schizoaffective disorder, bipolar type (HCC) Schizoaffective disorder, unspecified condition Platelets decreased (HCC) Thrombocytopenia, unspecified Stage 3b chronic kidney disease (HCC) Essential hypertension, benign Gastroesophageal reflux disease, unspecified whether esophagitis present Umbilical hernia without obstruction and without gangrene Elevated MCV Other abnormality of red blood cells Lymph node enlargement Enlargement of lymph nodes Screening for colon cancer Special screening for malignant neoplasms, colon documented in this encounter [facility] Summary Purpose Family History No Family History Records FoundNo Family History Records FoundNo Family History Records FoundNo Family History Records FoundNo Family History Records FoundNo Family History Records Found Advance Directives No Advanced Directives Records FoundDocuments on File Type Date Recorded Patient Engineering Documentation Specialist Expl anation Advance Directives and Living Will Power of Diathermy Equipment Repairer Documents on File Type Date Recorded Patient Engineering Documentation Specialist Expl anation Advance Directive(s) 04/19/2019 5:56 AM Discharge Instructions * Attachments The following attachments cannot be sent through Care Everywhere. * Edema: Leg and Ankle ([place]) * Shoulder Arthritis: Exercises ([place]) documented in this encounter Assessments Diagnosis Peripheral edema- Primary Edema Osteophyte of right shoulder Other affections of shoulder region, not elsewhere classified Additional Source Comments (unrecognized sect ion and content) No Status Records FoundNo Status Records FoundNo Status Records FoundNo Status Records FoundNo Status Records FoundNo Status Records Found INFORMATION SOURCE (unrecogn ized section and content) DATE CREATED AUTHOR AUTHOR'S ORGANIZ ATION 06/10/2020 [facility] DATE CREATED AUTHOR AUTHOR'S ORGANIZ ATION 06/13/2022 [facility] DATE CREATED AUTHOR AUTHOR'S ORGANIZ ATION 07/01/2022 [facility] DATE CREATED AUTHOR AUTHOR'S ORGANIZ ATION 07/03/2022 [facility] DATE CREATED AUTHOR AUTHOR'S ORGANIZ ATION 08/27/2023 [facility] Reason for Visit (unrecogniz ed section [...] Reason Onset Date Comments Refill Request 04/21/2023 Reason Comments Follow Up Source Comments (unrecognize d section and content) In the event this informatio n is protected by the Federal Confidentiality of Alcohol and Drug Abuse Patient Records regulations: The Federal rules restrict any use of the information to criminally investigate or prosecute any alcohol or drug abuse patient.[facility] HospitalIn the event this information is protected by the Federal Confidentiality of Alcohol and Drug Abuse Patient Records regulations: The Federal rules restrict any use of the information to criminally investigate or prosecute any alcohol or drug abuse patient.[facility] HospitalIn the event this information is protected by the Federal Confidentiality of Alcohol and Drug Abuse Patient Records regulations: The Federal rules restrict any use of the information to criminally investigate or prosecute any alcohol or drug abuse patient.[facility] HospitalIn the event this information is protected by the Federal Confidentiality of Alcohol and Drug Abuse Patient Records regulations: The Federal rules restrict any use of the information to criminally investigate or prosecute any alcohol or drug abuse patient.[facility] HospitalIn the event this information is protected by the Federal Confidentiality of Alcohol and Drug Abuse Patient Records regulations: The Federal rules restrict any use of the information to criminally investigate or prosecute any alcohol or drug abuse patient.[facility] HospitalIn the event this information is protected by the Federal Confidentiality of Alcohol and Drug Abuse Patient Records regulations: The Federal rules restrict any use of the information to criminally investigate or prosecute any alcohol or drug abuse patient.[facility] HospitalIn the event this information is protected by the Federal Confidentiality of Alcohol and Drug Abuse Patient Records regulations: The Federal rules restrict any use of the information to criminally investigate or prosecute any alcohol or drug abuse patient.[facility] HospitalIn the event this information is protected by the Federal Confidentiality of Alcohol and Drug Abuse Patient Records regulations: The Federal rules restrict any use of the information to criminally investigate or prosecute any alcohol or drug abuse patient.[facility] HospitalIn the event this information is protected by the Federal Confidentiality of Alcohol and Drug Abuse Patient Records regulations: The Federal rules restrict any use of the information to criminally investigate or prosecute any alcohol or drug abuse patient.[facility] HospitalIn the event this information is protected by the Federal Confidentiality of Alcohol and Drug Abuse Patient Records regulations: The Federal rules restrict any use of the information to criminally investigate or prosecute any alcohol or drug abuse patient.[facility] HospitalIn the event this information is protected by the Federal Confidentiality of Alcohol and Drug Abuse Patient Records regulations: The Federal rules restrict any use of the information to criminally investigate or prosecute any alcohol or drug abuse patient.[facility] HospitalIn the event this information is protected by the Federal Confidentiality of Alcohol and Drug Abuse Patient Records regulations: The Federal rules restrict any use of the information to criminally investigate or prosecute any alcohol or drug abuse patient.[facility] HospitalIn the event this information is protected by the Federal Confidentiality of Alcohol and Drug Abuse Patient Records regulations: The Federal rules restrict any use of the information to criminally investigate or prosecute any alcohol or drug abuse patient.[facility] HospitalIn the event this information is protected by the Federal Confidentiality of Alcohol and Drug Abuse Patient Records regulations: The Federal rules restrict any use of the information to criminally investigate or prosecute any alcohol or drug abuse patient.[facility] HospitalIn the event this information is protected by the Federal Confidentiality of Alcohol and Drug Abuse Patient Records regulations: The Federal rules restrict any use of the information to criminally investigate or prosecute any alcohol or drug abuse patient.[facility] HospitalIn the event this information is protected by the Federal Confidentiality of Alcohol and Drug Abuse Patient Records regulations: The Federal rules restrict any use of the information to criminally investigate or prosecute any alcohol or drug abuse patient.[facility] HospitalIn the event this information is protected by the Federal Confidentiality of Alcohol and Drug Abuse Patient Records regulations: The Federal rules restrict any use of the information to criminally investigate or prosecute any alcohol or drug abuse patient.[facility] HospitalIn the event this information is protected by the Federal Confidentiality of Alcohol and Drug Abuse Patient Records regulations: The Federal rules restrict any use of the information to criminally investigate or prosecute any alcohol or drug abuse patient.[facility] HospitalIn the event this information is protected by the Federal Confidentiality of Alcohol and Drug Abuse Patient Records regulations: The Federal rules restrict any use of the information to criminally investigate or prosecute any alcohol or drug abuse patient.[facility] HospitalIn the event this information is protected by the Federal Confidentiality of Alcohol and Drug Abuse Patient Records regulations: The Federal rules restrict any use of the information to criminally investigate or prosecute any alcohol or drug abuse patient.[facility] HospitalIn the event this information is protected by the Federal Confidentiality of Alcohol and Drug Abuse Patient Records regulations: The Federal rules restrict any use of the information to criminally investigate or prosecute any alcohol or drug abuse patient.[facility] HospitalIn the event this information is protected by the Federal Confidentiality of Alcohol and Drug Abuse Patient Records regulations: The Federal rules restrict any use of the information to criminally investigate or prosecute any alcohol or drug abuse patient.[facility] HospitalIn the event this information is protected by the Federal Confidentiality of Alcohol and Drug Abuse Patient Records regulations: The Federal rules restrict any use of the information to criminally investigate or prosecute any alcohol or drug abuse patient.[facility] HospitalIn the event this information is protected by the Federal Confidentiality of Alcohol and Drug Abuse Patient Records regulations: The Federal rules restrict any use of the information to criminally investigate or prosecute any alcohol or drug abuse patient.[facility] HospitalIn the event this information is protected by the Federal Confidentiality of Alcohol and Drug Abuse Patient Records regulations: The Federal rules restrict any use of the information to criminally investigate or prosecute any alcohol or drug abuse patient.[facility] HospitalIn the event this information is protected by the Federal Confidentiality of Alcohol and Drug Abuse Patient Records regulations: The Federal rules restrict any use of the information to criminally investigate or prosecute any alcohol or drug abuse patient.[facility] HospitalIn the event this information is protected by the Federal Confidentiality of Alcohol and Drug Abuse Patient Records regulations: The Federal rules restrict any use of the information to criminally investigate or prosecute any alcohol or drug abuse patient.[facility] HospitalIn the event this information is protected by the Federal Confidentiality of Alcohol and Drug Abuse Patient Records regulations: The Federal rules restrict any use of the information to criminally investigate or prosecute any alcohol or drug abuse patient.[facility] HospitalIn the event this information is protected by the Federal Confidentiality of Alcohol and Drug Abuse Patient Records regulations: The Federal rules restrict any use of the information to criminally investigate or prosecute any alcohol or drug abuse patient.[facility] Care Teams (unrecognized sec tion and content) Lathing Supervisor Relationship Specialty Start Date End Date Dell Asif MD PCP - General Family Practice 03/16/14 Lathing Supervisor Relationship Specialty Start Date End Date Dell Asif MD PCP - General Family Practice 03/16/14 Lathing Supervisor Relationship Specialty Start Date End Date Dell Asif MD PCP - General Family Practice 03/16/14 Lathing Supervisor Relationship Specialty Start Date End Date Dell Asif MD PCP - General Family Practice 03/16/14 Lathing Supervisor Relationship Specialty Start Date End Date Dell Asif MD PCP - General Family Practice 03/16/14 Lathing Supervisor Relationship Specialty Start Date End Date Dell Asif MD PCP - General Family Practice 03/16/14 Lathing Supervisor Relationship Specialty Start Date End Date Dell Asif MD PCP - General Family Practice 03/16/14 Lathing Supervisor Relationship Specialty Start Date End Date Dell Asif MD PCP - General Family Practice 03/16/14 Lathing Supervisor Relationship Specialty Start Date End Date Dell Asif MD PCP - General Family Practice 03/16/14 Lathing Supervisor Relationship Specialty Start Date End Date Dell Asif MD [address] [place] [id number] PCP - General Family Practice 03/17/22 Lathing Supervisor Relationship Specialty Start Date End Date Dell Asif MD [address] [place] [id number] PCP - General Family Practice 03/17/22 Lathing Supervisor Relationship Specialty Start Date End Date Dell Asif MD [address] [place] [id number] PCP - General Family Practice 03/17/22 Lathing Supervisor Relationship Specialty Start Date End Date Dell Asif MD [address] [place] [id number] PCP - General Family Medicine 03/17/22 Lathing Supervisor Relationship Specialty Start Date End Date Dell Asif MD [address] [place] [id number] PCP - General Family Medicine 03/17/22 Lathing Supervisor Relationship Specialty Start Date End Date Dell Asif MD [address] [place] [id number] PCP - General Family Medicine 03/17/22 Lathing Supervisor Relationship Specialty Start Date End Date Dell Asif MD [address] [place] [id number] PCP - General Family Medicine 03/17/22 Lathing Supervisor Relationship Specialty Start Date End Date Dell Asif MD [address] [place] [id number] PCP - General Family Medicine 03/17/22 Lathing Supervisor Relationship Specialty Start Date End Date Dell Asif MD [address] [id number] PCP - [facility] 03/17/22 Lathing Supervisor Relationship Specialty Start Date End Date Dell Asif MD [address] [id number] PCP - [facility] 03/17/22 Lathing Supervisor Relationship Specialty Start Date End Date Dell Asif MD [address] [id number] PCP - [facility] 03/17/22 Lathing Supervisor Relationship Specialty Start Date End Date Dell Asif MD [address] [id number] PCP - [facility] 03/17/22 <item> Privacy Markings (unrecogniz ed section [...] BE BASED ON THE PRIMARY CLINICAL RECORDS. [facility] provides no warranty or guarantee of the accuracy or completeness of information in this document.
== END 2023-08-30 09:28 | disposition home or self-care (01) ==
LOC: ED 09:19
PROVIDERS: Emergency Provider Emergency Medicine; Visit Provider Emergency Medicine
DX: K04.7 Periapical abscess without sinus (principal); F41.9 Anxiety disorder, unspecified; I10 Essential (primary) hypertension
CPT/HCPCS: 99282